=== PATIENT | male | born 1960 | race Caucasian/White ===

== ENCOUNTER 2017-11-30 22:34 | Emergency (ER) | payer MEDICARE, BC ==
[2017-11-30 22:42] VITALS: BP 156/72
[2017-11-30] MEDS ORDERED: Ibuprofen 600 MG Tab PO ONE (23:17)
--- NOTE | 2017-11-30 23:22 | EDM.PDOC ---
ED HPI GENERAL MEDICAL PROBLEM - General Chief Complaint: Upper Extremity Injury/Pain Stated Complaint: ARM PAIN Time Seen by Provider: 11/30/17 22:47 Source of Information: Reports: Patient, Family (2 brothers) History Limitations: Reports: Physical Impairment (Down syndrome) - History of Present Illness INITIAL COMMENTS - FREE TEXT/NARRATIVE: The patient states that he developed left elbow pain tonight. 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 He also likes to color and leans on his left elbow when coloring. The patient's brothers tell me that the patient has a history of gout, initially made when he had symptoms consistent with podagra, although they also say that, to their knowledge, the patient has never had an inflamed joint aspirated. The patient is on allopurinol 300 mg 3 times a week. The patient was seen by me in this ED on 07/28/2016, also with left elbow pain. An x-ray was concerning for an impacted radial head fracture, however, the patient followed up with Dr. Hernandez, who thought that it might be gout in his elbow. Again, no joint aspiration was done, and, according to the brothers, no treatment other than physical therapy was given. The patient's PCP is Dr. Thomason. Left Elbow Pain Score (Numeric/FACES): 6 - Related Data Allergies Allergy/AdvReac Type Severity Reaction Status Date / Time No Known Allergies Allergy Verified 07/28/16 07:39 Home Meds: Home Meds Allopurinol [Zyloprim] 300 mg PO MOWEFR 01/23/14 [History] Levothyroxine [Synthroid] 50 mcg PO DAILY 01/23/14 [History] atorvaSTATin [Lipitor] 20 mg PO DAILY 01/23/14 [History] Pantoprazole [Protonix IV] 40 mg PO DAILY 06/28/16 [History] Sucralfate 1 gm PO TID 11/30/17 [History] Past Medical History HEENT History: Reports: Impaired Vision Cardiovascular History: Reports: High Cholesterol Gastrointestinal History: Reports: GERD Musculoskeletal History: Reports: Gout (presumed) Neurological History: Reports: Other (See Below) (Down syndrome) Endocrine/Metabolic History: Reports: Hypothyroidism, Obesity/BMI 30+ Social & Family History - Tobacco Use Smoking Status *Q: Never Smoker Second Hand Smoke Exposure: Yes - Caffeine Use Caffeine Use: Reports: Soda - Alcohol Use Alcohol Use History: No Days Per Week of Alcohol Use: 0 - Recreational Drug Use Recreational Drug Use: No - Living Situation & Occupation Living situation: Reports: Single, with Family (2 brothers) Occupation: Employed ([employer]) Review of Systems - Review of Systems Review Of Systems: ROS reveals no pertinent complaints other than HPI. ED EXAM, GENERAL - Physical Exam Exam: See Below Exam Limited By: No Limitations General Appearance: Alert, WD/WN, No Apparent Distress Extremities: Other (There is mild erythema to the extensor surface of the left elbow, but no associated swelling, ecchymosis, or abrasion. There is some dry callus to the extensor surface of the left elbow, not present on the right. There is mild tenderness about the elbow generally. Pain is elicited with attempts to extend the elbow. Pain is also elicited with the patient's attempt to extend the elbow against resistance. Flexing the elbow against resistance is less painful. Neurovascular status of the left upper extremity is intact.) Course - Vital Signs Last Recorded V/S: Last Vital Signs Temp 36.2 C 11/30/17 22:39 Pulse 87 11/30/17 22:39 Resp 18 11/30/17 22:39 BP 156/72 H 11/30/17 22:39 Pulse Ox 98 11/30/17 22:39 - Orders/Labs/Meds Meds: Medications Discontinued Medications Generic Name Dose Route Start Last Admin Trade Name Francia PRN Reason Stop Dose Admin Ibuprofen 600 mg 11/30/17 23:17 11/30/17 23:22 Motrin PO 11/30/17 23:18 600 mg ONETIME ONE Administration - Re-Assessments/Exams Free Text/Narrative Re-Assessment/Exam: 11/30/17 23:19 The patient's brothers state that the patient has a history of gout, and he is on allopurinol 300 mg 3 times a week, however, when asked about the specifics of his diagnosis, an inflamed joint has not previously been aspirated, therefore it appears the patient has a suspected diagnosis of gout, not confirmed. I doubt today's presentation is gout. Because the patient has pain with attempt to extend his elbow against resistance, this appears to be tendinitis, not inflammation of the joint itself. I'm recommending ibuprofen 600 mg Q8 hours, with food. If his symptoms persist into next week, I would like him to follow-up with Dr. Hernandez. Departure - Departure Time of Disposition: 23:20 Disposition: Home, Self-Care 01 Condition: Good Clinical Impression: Tendinitis of left elbow - Discharge Information Instructions: Tendinitis Referrals: Raad Acosta MD [Primary Care Provider] - Derek Hernandez MD [Physician] - Forms: ED Department Discharge Additional Instructions: Ric was seen in the emergency room for left elbow pain tonight. On examination, his pain is MOST LIKELY due to tendinitis, not gout. He has been started on the anti-inflammatory medicine ibuprofen. This is available [id number]. Give 3 tablets (600 mg) every 8 hours, with food. He should minimize use and pressure on his left elbow. If he needs to rest on his left elbow, it should be done on a pillow or some other soft material. If his symptoms persist into this coming week, please have him follow-up with Dr. Hernandez. If any other problems, please do not hesitate to return Ric to the ER.
== END 2017-11-30 23:30 | disposition home or self-care (01) ==
LOC: JD.ED 22:34
DX: M77.9 Enthesopathy, unspecified (principal); Q90.9 Down syndrome, unspecified; M10.9 Gout, unspecified; E78.00 Pure hypercholesterolemia, unspecified; E03.9 Hypothyroidism, unspecified; Z79.899 Other long term (current) drug therapy
CPT/HCPCS: 99283; A9270

== ENCOUNTER 2019-01-09 18:38 | Emergency (ER) | payer MEDICARE, BC ==
[2019-01-09] MEDS ORDERED: Sodium Chloride 0.9% 10 ML Syringe FLUSH PRN (19:06)
[2019-01-09] MEDS ORDERED: Sodium Chloride 0.9% 1,000 ML IV SCH (19:15)
--- NOTE | 2019-01-09 19:27 | EDM.PDOC ---
ED HPI GENERAL MEDICAL PROBLEM - General Chief Complaint: Syncope Stated Complaint: [facility] Time Seen by Provider: 01/09/19 18:54 Source of Information: Reports: Patient, EMS, Family History Limitations: Reports: No Limitations - History of Present Illness INITIAL COMMENTS - FREE TEXT/NARRATIVE: The patient presents by [facility] for syncope. The patient has down' s syndrome. He was at home with family and he complained of his head hurting and his chest. He got up to go to the bathroom and he nearly passed out. A family member helped him to the ground. He did not go all the way out. He had no seizure activity. He has no fever, chills, cough, congestion or runny nose. He has some mild chest discomfort. He still has a mild headache. He had a near syncopal episode back in August. He was seen here. His EKG and labs looked good. His CT of his head looked good. He was put on a holter monitor and that showed a couple episodes of SVT that only lasted a few seconds. He had carotid US that looked good. He has no history of MS. Onset: Sudden Duration: Minutes: Location: Reports: Chest Quality: Reports: Ache Severity: Mild Improves with: Reports: None Worsens with: Reports: None Associated Symptoms: Reports: Chest Pain, Headaches. Denies: Cough, Fever/ Chills, Nausea/Vomiting, Shortness of Breath Epigastric Pain Score (Numeric/FACES): 5 - Related Data Allergies Allergy/AdvReac Type Severity Reaction Status Date / Time No Known Allergies Allergy Verified 01/09/19 18:44 Home Meds: Home Meds Allopurinol [Zyloprim] 300 mg PO MOWEFR 01/23/14 [History] Levothyroxine [Synthroid] 50 mcg PO DAILY 01/23/14 [History] atorvaSTATin [Lipitor] 20 mg PO DAILY 01/23/14 [History] Pantoprazole [Protonix IV] 40 mg PO DAILY 06/28/16 [History] Sucralfate 1 gm PO TID 11/30/17 [History] Past Medical History HEENT History: Reports: Impaired Vision Cardiovascular History: Reports: High Cholesterol Gastrointestinal History: Reports: GERD Musculoskeletal History: Reports: Gout Neurological History: Reports: Other (See Below) (Down syndrome) Psychiatric History: Reports: Developmental Delay Endocrine/Metabolic History: Reports: Hypothyroidism, Obesity/BMI 30+ - History Comment History Comment: Patient has Down's syndrome. He is high functioning. Social & Family History - Caffeine Use Caffeine Use: Reports: Soda - Living Situation & Occupation Living situation: Reports: Single, with Family (2 brothers) Occupation: Employed ([employer]) ED ROS GENERAL - Review of Systems Review Of Systems: See Below Constitutional: Reports: No Symptoms HEENT: Reports: No Symptoms Respiratory: Reports: No Symptoms Cardiovascular: Reports: Chest Pain, Syncope Endocrine: Reports: No Symptoms GI/Abdominal: Reports: No Symptoms : Reports: No Symptoms Musculoskeletal: Reports: No Symptoms - Physical Exam Exam: See Below Exam Limited By: No Limitations General Appearance: Alert, No Apparent Distress Ears: Normal External Exam Nose: Normal Inspection Throat/Mouth: Other (Dry mucus membranes) Head Exam: Atraumatic, Normocephalic Neck: Normal Inspection Respiratory/Chest: No Respiratory Distress, Lungs Clear, Normal Breath Sounds Cardiovascular: Regular Rate, Rhythm, No Edema, No Murmur GI/Abdominal: Soft, Non-Tender, No Organomegaly, No Mass Neuro Exam (Abbreviated): Alert, Oriented, No Motor/Sensory Deficits Back Exam: Normal Inspection Extremities: Normal Inspection EKG INTERPRETATION EKG Date: 01/09/19 Time: 19:11 Rhythm: NSR Rate (Beats/Min): 70 [place]: Normal P-Wave: Present QRS: LBBB ST-T: Normal QT: Normal Course - Vital Signs Last Recorded V/S: Last Vital Signs Temp 98.9 F 01/09/19 18:44 Pulse 74 01/09/19 18:44 Resp 16 01/09/19 18:44 BP 122/62 01/09/19 18:44 Pulse Ox - Orders/Labs/Meds Orders: Active Orders 24 hr Category Date Time Status Cardiac Monitoring [RC] . DIRECTED Care 01/09/19 19:06 Active EKG Documentation Completion [RC] STAT Care 01/09/19 19:06 Active Peripheral IV Care [RC] . DIRECTED Care 01/09/19 19:07 Active Chest 1V Frontal [CR] Stat Exams 01/09/19 19:07 Taken Sodium Chloride 0.9% [Normal Saline] 1,000 ml Med 01/09/19 19:15 Active IV ASDIRECTED Sodium Chloride 0.9% [Saline Flush] Med 01/09/19 19:06 Active 10 ml FLUSH ASDIRECTED PRN Peripheral IV Insertion Adult [OM.PC] Stat Oth 01/09/19 19:06 Ordered Medication Orders Sodium Chloride (Normal Saline) 1,000 mls @ 125 mls/hr IV ASDIRECTED SYEDA Last Admin: 01/09/19 19:19 Dose: 125 mls/hr Sodium Chloride (Saline Flush) 10 ml FLUSH ASDIRECTED PRN PRN Reason: Keep Vein Open Last Admin: 01/09/19 19:20 Dose: 10 ml Labs: Laboratory Tests 01/09/19 01/09/19 01/09/19 Range/Units 19:15 19:15 19:15 WBC 6.58 (4.23-9.07) K/mm3 RBC 4.28 L (4.63-6.08) M/mm3 Hgb 14.6 (13.7-17.5) gm/L Hct 42.4 (40.1-51.0) % MCV 99.1 H (79.0-92.2) fl MCH 34.1 H (25.7-32.2) pg MCHC 34.4 (32.2-35.5) g/dl RDW Std Deviation 52.3 H (35.1-43.9) fL Plt Count 162 L (163-337) K/mm3 MPV 9.6 (9.4-12.3) fl Neut % (Auto) 84.3 H (34.0-67.9) % Lymph % (Auto) 9.0 L (21.8-53.1) % Frio % (Auto) 5.9 (5.3-12.2) % Eos % (Auto) 0.3 L (0.8-7.0) Baso % (Auto) 0.3 (0.1-1.2) % Neut # (Auto) 5.55 H (1.78-5.38) K/mm3 Lymph # (Auto) 0.59 L (1.32-3.57) K/mm3 Frio # (Auto) 0.39 (0.30-0.82) K/mm3 Eos # (Auto) 0.02 L (0.04-0.54) K/mm3 Baso # (Auto) 0.02 (0.01-0.08) K/mm3 Manual Slide Review Normal smear Sodium 141 (136-145) mEq/L Potassium 4.0 (3.5-5.1) mEq/L Chloride 105 (98-107) mEq/L Carbon Dioxide 29 (21-32) mEq/L Anion Gap 11.0 (5-15) BUN 13 (7-18) mg/dL Creatinine 1.5 H (0.7-1.3) mg/dL Est Cr Clr Drug Dosing TNP Estimated GFR (MDRD) 48 (>60) mL/min BUN/Creatinine Ratio 8.7 L (14-18) Glucose 147 H (74-106) mg/dL Calcium 9.5 (8.5-10.1) mg/dL Total Bilirubin 0.6 (0.2-1.0) mg/dL AST 31 (15-37) U/L ALT 26 (16-63) U/L Alkaline Phosphatase 114 (46-116) U/L Troponin I < 0.017 (0.00-0.056) ng/mL Total Protein 7.3 (6.4-8.2) g/dl Albumin 3.4 (3.4-5.0) g/dl Globulin 3.9 gm/dL Albumin/Globulin Ratio 0.9 L (1-2) TSH 3rd Generation 4.701 H (0.358-3.74) uIU/mL Meds: Medications Generic Name Dose Route Start Last Admin Trade Name Freq PRN Reason Stop Dose Admin Sodium Chloride 1,000 mls @ 125 mls/hr 01/09/19 19:15 01/09/19 19:19 Normal Saline IV 125 mls/hr ASDIRECTED SYEDA Administration Sodium Chloride 10 ml 01/09/19 19:06 01/09/19 19:20 Saline Flush FLUSH 10 ml ASDIRECTED PRN Administration Keep Vein Open - Re-Assessments/Exams Free Text/Narrative Re-Assessment/Exam: 01/09/19 19:29 I was in talking to the patient and many of his family when the patient passed out again. He had a 3 to 6 second asystole and then bradycardia. He came to in a about 12 seconds after I stimulated him by sternal rub. He said that he passed out again. I had him moved to our trauma bay and put pacer pads on him. I ordered an EKG, CXR, and labs. His EKG shows a LBBB at a rate of 70. That appears to be old from prior EKGs. 01/09/19 20:35 His CBC was negative. His troponin was negative. His creatinine was elevated at 1.5. His glucose was elevated at 147. I talked to the family and I think he needs to see cardiology and have a pacemaker inserted. They wanted me to call [facility] in [place]. When I was on hold he had another bradycardic episode where he went down to 28 to 30. He had chest pain with this and shortness of breath. This lasted about 30 seconds. He came back to a NSR. I talked with Dr Fleming the hospitalist and Dr Acharya the water inspector. They accepted the patient. 01/09/19 20:48 Dr Acharya recommended a dobutamine drip at 3mcg. Departure - Departure Time of Disposition: 20:55 Disposition: DC/Tfer to [facility] 02 Clinical Impression: Asystole Chest pain Qualifiers: Chest pain type: unspecified Qualified Code(s): R07.9 - Chest pain, unspecified Syncope Qualifiers: Syncope type: unspecified Qualified Code(s): R55 - Syncope and collapse Headache Qualifiers: Headache type: unspecified Headache chronicity pattern: acute headache Intractability: not intractable Qualified Code(s): R51 - Headache Hypothyroid Qualifiers: Hypothyroidism type: unspecified Qualified Code(s): E03.9 - Hypothyroidism, unspecified - Discharge Information Referrals: Raad Acosta MD [Primary Care Provider] - Forms: ED Department Discharge - My Orders Last 24 Hours: My Active Orders 01/09/19 19:06 Cardiac Monitoring [RC] . DIRECTED EKG Documentation Completion [RC] STAT Sodium Chloride 0.9% [Saline Flush] 10 ml FLUSH ASDIRECTED PRN Peripheral IV Insertion Adult [OM.PC] Stat 01/09/19 19:07 Peripheral IV Care [RC] . DIRECTED Chest 1V Frontal [CR] Stat 01/09/19 19:15 Sodium Chloride 0.9% [Normal Saline] 1,000 ml IV ASDIRECTED - Assessment/Plan Last 24 Hours: My Active Orders 01/09/19 19:06 Cardiac Monitoring [RC] . DIRECTED EKG Documentation Completion [RC] STAT Sodium Chloride 0.9% [Saline Flush] 10 ml FLUSH ASDIRECTED PRN Peripheral IV Insertion Adult [OM.PC] Stat 01/09/19 19:07 Peripheral IV Care [RC] . DIRECTED Chest 1V Frontal [CR] Stat 01/09/19 19:15 Sodium Chloride 0.9% [Normal Saline] 1,000 ml IV ASDIRECTED
[2019-01-09] MEDS ORDERED: LORazepam 2 MG/ML SDV IVPUSH ONE (21:06)
[2019-01-09] MEDS ORDERED: Atropine 0.4 MG/ML SDV IVPUSH ONE (21:23)
[2019-01-09] MEDS ORDERED: Atropine 0.1 MG/ML 10 ML Syringe ONE (21:29)
[2019-01-09] MEDS ORDERED: Atropine 0.1 MG/ML 10 ML Syringe IVPUSH ONE (21:30)
[2019-01-09 21:43] VITALS: BP 106/59
--- NOTE | 2019-01-10 06:46 | CR ---
Chest: Portable view of the chest was obtained. Comparison: Prior chest x-ray of 08/20/18. Heart size and mediastinum are normal. Lungs are clear. Bony structures are grossly intact. Impression: 1. Nothing acute is seen on portable chest x-ray. No change from previous chest x-ray is seen. Diagnostic code #1
== END 2019-01-09 21:40 ==
LOC: JD.ED 18:38 → SUPCPDRO 18:38 → JD.ED 21:40
DX: I46.9 Cardiac arrest, cause unspecified (principal); R51 Headache; R55 Syncope and collapse; E78.00 Pure hypercholesterolemia, unspecified; K21.9 Gastro-esophageal reflux disease without esophagitis; E03.9 Hypothyroidism, unspecified; Z79.899 Other long term (current) drug therapy
CPT/HCPCS: 36415; 71045; 80053; 84443; 84484; 85025; 96361; 96374; 99285; J0461; J2060; J7040; 93010; 99284

== ENCOUNTER 2019-03-16 13:19 | Emergency (ER) | payer MEDICARE, BC ==
[2019-03-16 13:44] VITALS: BP 140/81
[2019-03-16] MEDS ORDERED: Sodium Chloride 0.9% 10 ML Syringe FLUSH PRN (13:53)
[2019-03-16] MEDS ORDERED: Ondansetron 4 MG/2 ML SDV IVPUSH ONE (13:53)
[2019-03-16] MEDS ORDERED: HYDROmorphone 0.5 MG/0.5 ML Syringe IVPUSH ONE (13:55)
[2019-03-16] MEDS ORDERED: Sodium Chloride 0.9% 1,000 ML IV SCH (14:00)
[2019-03-16] MEDS ORDERED: Sodium Chloride 0.9% 1,000 ML IV ONE (14:43)
--- NOTE | 2019-03-16 14:51 | EDM.PDOC ---
ED HPI GENERAL MEDICAL PROBLEM - General Chief Complaint: Abdominal Pain Stated Complaint: RECTAL BLEEDING Time Seen by Provider: 03/16/19 13:43 Source of Information: Reports: Patient History Limitations: Reports: No Limitations - History of Present Illness INITIAL COMMENTS - FREE TEXT/NARRATIVE: The patient presents with rectal bleeding and abdominal pain. This started this morning. He has had 3 bowel movement with mostly blood in them. He also has generalized abdominal pain. He does not feel nauseated and has not vomited. He has never had anything like this before and he has never had diverticulitis. He recently had a pacemaker put in down in [place]. He is not on blood thinners. He has no other symptoms such as fever, chills, cough, chest pain or shortness of breath. He has no dysuria. Onset: Gradual Duration: Hour(s): Location: Reports: Abdomen Quality: Reports: Ache Severity: Moderate Improves with: Reports: None Worsens with: Reports: None Associated Symptoms: Denies: Chest Pain, Cough, Fever/Chills, Headaches, Nausea/ Vomiting, Shortness of Breath Abdomen Pain Score (Numeric/FACES): 10 - Related Data Allergies Allergy/AdvReac Type Severity Reaction Status Date / Time No Known Allergies Allergy Verified 01/09/19 18:44 Home Meds: Home Meds Allopurinol [Zyloprim] 300 mg PO MOWEFR 01/23/14 [History] Levothyroxine [Synthroid] 50 mcg PO DAILY 01/23/14 [History] atorvaSTATin [Lipitor] 20 mg PO DAILY 01/23/14 [History] Pantoprazole [Protonix IV] 40 mg PO BID 06/28/16 [History] Past Medical History HEENT History: Reports: Impaired Vision Cardiovascular History: Reports: High Cholesterol Gastrointestinal History: Reports: GERD Musculoskeletal History: Reports: Gout Neurological History: Reports: Other (See Below) Psychiatric History: Reports: Developmental Delay Endocrine/Metabolic History: Reports: Hypothyroidism, Obesity/BMI 30+ - History Comment History Comment: Patient has Down's syndrome. He is high functioning. Social & Family History - Tobacco Use Smoking Status *Q: Never Smoker - Caffeine Use Caffeine Use: Reports: Soda - Recreational Drug Use Recreational Drug Use: No - Living Situation & Occupation Living situation: Reports: Single, with Family (2 brothers) Occupation: Employed ([employer]) ED ROS GENERAL - Review of Systems Review Of Systems: See Below Constitutional: Reports: No Symptoms HEENT: Reports: No Symptoms Respiratory: Reports: No Symptoms Cardiovascular: Reports: No Symptoms Endocrine: Reports: No Symptoms GI/Abdominal: Reports: Abdominal Pain, Bloody Stool. Denies: Diarrhea, Nausea, Vomiting : Reports: No Symptoms Musculoskeletal: Reports: No Symptoms ED EXAM, GI/ABD - Physical Exam Exam: See Below Exam Limited By: No Limitations General Appearance: Alert, No Apparent Distress Ears: Normal External Exam Nose: Normal Inspection Head: Atraumatic, Normocephalic Neck: Normal Inspection Respiratory/Chest: No Respiratory Distress, Lungs Clear, Normal Breath Sounds Cardiovascular: Regular Rate, Rhythm, No Edema, No Murmur GI/Abdominal Exam: Soft, No Organomegaly, No Mass, Tender (Moderate tenderness to his whole abdomen) Rectal (Males) Exam: Other (Dried blood at the rectum with no hemorrhoids noted) Extremities: Normal Inspection Course - Vital Signs Last Recorded V/S: Last Vital Signs Temp 97.9 F 03/16/19 13:43 Pulse 65 03/16/19 14:18 Resp 20 03/16/19 13:43 BP 140/81 03/16/19 13:43 Pulse Ox 93 L 03/16/19 14:18 - Orders/Labs/Meds Orders: Active Orders 24 hr Category Date Time Status Peripheral IV Care [RC] . DIRECTED Care 03/16/19 13:55 Active Abdomen Pelvis w Cont [CT] Stat Exams 03/16/19 13:53 Taken Sodium Chloride 0.9% [Normal Saline] 1,000 ml Med 03/16/19 14:00 Active IV ASDIRECTED Sodium Chloride 0.9% [Saline Flush] Med 03/16/19 13:53 Active 10 ml FLUSH ASDIRECTED PRN ED Antiemetic Medication Reflex [OM.PC] Stat Oth 03/16/19 13:53 Ordered Peripheral IV Insertion Adult [OM.PC] Stat Oth 03/16/19 13:53 Ordered Medication Orders Sodium Chloride (Normal Saline) 1,000 mls @ 125 mls/hr IV ASDIRECTED SYEDA Last Admin: 03/16/19 14:12 Dose: 125 mls/hr Sodium Chloride (Saline Flush) 10 ml FLUSH ASDIRECTED PRN PRN Reason: Keep Vein Open Last Admin: 06/02/19 14:13 Dose: 10 ml Labs: Laboratory Tests 03/16/19 03/16/19 Range/Units 14:08 14:08 WBC 4.55 (4.23-9.07) K/mm3 RBC 4.12 L (4.63-6.08) M/mm3 Hgb 14.0 (13.7-17.5) gm/L Hct 41.0 (40.1-51.0) % MCV 99.5 H (79.0-92.2) fl MCH 34.0 H (25.7-32.2) pg MCHC 34.1 (32.2-35.5) g/dl RDW Std Deviation 53.5 H (35.1-43.9) fL Plt Count 178 (163-337) K/mm3 MPV 9.0 L (9.4-12.3) fl Neut % (Auto) 51.5 (34.0-67.9) % Lymph % (Auto) 36.0 (21.8-53.1) % [place] % (Auto) 9.7 (5.3-12.2) % Eos % (Auto) 1.3 (0.8-7.0) Baso % (Auto) 1.3 H (0.1-1.2) % Neut # (Auto) 2.34 (1.78-5.38) K/mm3 Lymph # (Auto) 1.64 (1.32-3.57) K/mm3 [place] # (Auto) 0.44 (0.30-0.82) K/mm3 Eos # (Auto) 0.06 (0.04-0.54) K/mm3 Baso # (Auto) 0.06 (0.01-0.08) K/mm3 Manual Slide Review Abnormal smear Sodium 142 (136-145) mEq/L Potassium 3.8 (3.5-5.1) mEq/L Chloride 104 (98-107) mEq/L Carbon Dioxide 30 (21-32) mEq/L Anion Gap 11.8 (5-15) BUN 9 (7-18) mg/dL Creatinine 1.5 H (0.7-1.3) mg/dL Est Cr Clr Drug Dosing 45.50 mL/min Estimated GFR (MDRD) 48 (>60) mL/min BUN/Creatinine Ratio 6.0 L (14-18) Glucose 98 (74-106) mg/dL Calcium 9.2 (8.5-10.1) mg/dL Total Bilirubin 0.7 (0.2-1.0) mg/dL AST 37 (15-37) U/L ALT 27 (16-63) U/L Alkaline Phosphatase 114 (46-116) U/L Troponin I < 0.017 (0.00-0.056) ng/mL Total Protein 7.2 (6.4-8.2) g/dl Albumin 3.4 (3.4-5.0) g/dl Globulin 3.8 gm/dL Albumin/Globulin Ratio 0.9 L (1-2) Meds: Medications Generic Name Dose Route Start Last Admin Trade Name Freq PRN Reason Stop Dose Admin Sodium Chloride 1,000 mls @ 125 mls/hr 03/16/19 14:00 03/16/19 14:12 Normal Saline IV 125 mls/hr ASDIRECTED SYEDA Administration Sodium Chloride 10 ml 03/16/19 13:53 03/16/19 14:13 Saline Flush FLUSH 10 ml ASDIRECTED PRN Administration Keep Vein Open Discontinued Medications Generic Name Dose Route Start Last Admin Trade Name Freq PRN Reason Stop Dose Admin Diatrizoate Meglum/Diatrizoate Sod 90 ml 03/16/19 15:37 03/16/19 15:54 Gastrografin 37% PO 03/16/19 15:38 90 ml ONETIME ONE Administration Hydromorphone HCl 0.5 mg 03/16/19 13:55 03/16/19 14:12 Dilaudid IVPUSH 03/16/19 13:56 0.5 mg ONETIME ONE Administration Sodium Chloride 1,000 mls @ 1,000 mls/hr 03/16/19 14:43 03/16/19 14:51 Normal Saline IV 03/16/19 15:42 1,000 mls/hr ONETIME ONE Administration Iohexol 100 ml 03/16/19 15:37 03/16/19 15:54 Omnipaque-300 IVPUSH 03/16/19 15:38 100 ml ONETIME ONE Administration Ondansetron HCl 4 mg 03/16/19 13:53 03/16/19 14:13 Zofran IVPUSH 03/16/19 13:54 4 mg ONETIME ONE Administration Sodium Chloride 10 ml 03/16/19 15:37 03/16/19 15:54 Saline Flush FLUSH 03/16/19 15:38 10 ml ONETIME ONE Administration - Re-Assessments/Exams Free Text/Narrative Re-Assessment/Exam: 03/16/19 14:51 I ordered an IV NS at 125mL/hr, zofran 4mg IV, labs, UA, CT of his abdomen and pelvis and dilaudid 0.5mg IV. 03/16/19 17:03 His CBC looks good. His creatinine is elevated at 1.5 and GFR is 48. I ordered a NS bolus. His troponin is negative. The CT shows mild thickening of the rectal wall is present and may be secondary to inflammatory changes. Subpleural cystic changes and atelectatic changes noted within both lung bases. Bladder is moderately distended. Mild diverticulosis is present in the distal colon. He is feeling better. He is going to need a colonoscopy within a week or 2. I feel it is safe to have him go home. Departure - Departure Time of Disposition: 17:10 Disposition: Home, Self-Care 01 Condition: Good Clinical Impression: Proctitis - Discharge Information *PRESCRIPTION DRUG MONITORING PROGRAM REVIEWED*: No *COPY OF PRESCRIPTION DRUG MONITORING REPORT IN PATIENT PB: No Referrals: Raad Acosta MD [Primary Care Provider] - 2 Days Forms: ED Department Discharge Additional Instructions: Drink plenty of fluids. Take tylenol or motrin for pain. Follow up with Dr Thomason within a week. Try calling his office tomorrow. - My Orders Last 24 Hours: My Active Orders 03/16/19 13:53 Abdomen Pelvis w Cont [CT] Stat Sodium Chloride 0.9% [Saline Flush] 10 ml FLUSH ASDIRECTED PRN ED Antiemetic Medication Reflex [OM.PC] Stat Peripheral IV Insertion Adult [OM.PC] Stat 03/16/19 13:55 Peripheral IV Care [RC] . DIRECTED 03/16/19 14:00 Sodium Chloride 0.9% [Normal Saline] 1,000 ml IV ASDIRECTED - Assessment/Plan Last 24 Hours: My Active Orders 03/16/19 13:53 Abdomen Pelvis w Cont [CT] Stat Sodium Chloride 0.9% [Saline Flush] 10 ml FLUSH ASDIRECTED PRN ED Antiemetic Medication Reflex [OM.PC] Stat Peripheral IV Insertion Adult [OM.PC] Stat 03/16/19 13:55 Peripheral IV Care [RC] . DIRECTED 03/16/19 14:00 Sodium Chloride 0.9% [Normal Saline] 1,000 ml IV ASDIRECTED
[2019-03-16] MEDS ORDERED: Iohexol 647 MG/ML 100 ML Bottle IVPUSH ONE (15:37)
[2019-03-16] MEDS ORDERED: Diatrizoate Meglumine/Diatrizoate Sodium 37% 120 ML Bottle PO ONE (15:37)
[2019-03-16] MEDS ORDERED: Sodium Chloride 0.9% 10 ML Syringe FLUSH ONE (15:37)
--- NOTE | 2019-03-17 10:16 | CT ---
CT abdomen and pelvis Technique: Multiple axial sections were obtained from above the dome of the diaphragm inferiorly through the pubic symphysis. Intravenous and oral contrast was utilized. Comparison: No prior abdominal imaging. Findings: Visualized lung bases show multiple subpleural blebs within the right base and lesser change within the left base. Liver contains no focal abnormality. Gallbladder shows no calcified gallstones. Small amount of contrast reflux into the distal esophagus is seen. Spleen appears within normal limits. Adrenal glands show no nodule. Kidneys show symmetric contrast enhancement without hydronephrosis or mass. Pancreas appears within normal limits. Aorta shows no aneurysm. No retroperitoneal adenopathy or mesenteric abnormalities are seen. No pelvic mass or adenopathy is seen. No free fluid or inflammatory change is seen. Appendix not definitely visualized. Delayed images show contrast within the distal ureters. Bladder is somewhat distended. Questionable thickening within portions of the sigmoid and rectum. Difficult to exclude colitis. Minimal sigmoid diverticulosis is seen without diverticulitis. Bone window settings were reviewed which show diffuse degenerative change throughout the spine. Spondylolisthesis is seen due to degenerative apophyseal changes at L5-S1. This spondylolisthesis at L5-S1 measures approximately 3.5 mm. Impression: 1. Multiple findings believed to be incidental as described above. 2. Questionable colitis within the rectum and portions of the sigmoid colon. 3. Nothing acute is otherwise appreciated on CT study of the abdomen and pelvis. Note: Given history of rectal bleeding, endoscopy is suggested to further evaluate. Diagnostic code #3 I agree with preliminary report from [facility], finalized on 03/16/19, 5:27 PM Central Time
== END 2019-03-16 17:27 | disposition home or self-care (01) ==
LOC: JD.ED 13:19
DX: K62.89 Other specified diseases of anus and rectum (principal); K21.9 Gastro-esophageal reflux disease without esophagitis; E03.9 Hypothyroidism, unspecified; Z79.899 Other long term (current) drug therapy
CPT/HCPCS: 36415; 74177; 80053; 84484; 85025; 96361; 96374; 96375; 99284; J1170; J2405; J7040; Q9963; Q9967

== ENCOUNTER 2019-04-11 06:20 | Day surgery (SDC) | payer MEDICARE, BC ==
[~2019-04-11 06:20] MED LIST: Lactated Ringers 1,000 ML IV SCH; Lidocaine 1%/Sod Bicarbonate in NS 8.4% 1 ML Syringe IDERM PRN; Sodium Chloride 0.9% 10 ML Syringe FLUSH PRN
[2019-04-11] MEDS ORDERED: Propofol 200 MG/20 ML SDV ONE (06:56)
[2019-04-11] MEDS ORDERED: Lidocaine 1% 4 ML ONE (06:56)
[2019-04-11] MEDS ORDERED: fentaNYL 100 MCG/2 ML SDV ONE (06:56)
--- NOTE | 2019-04-11 07:08 | PCM.PREANE ---
Preanesthetic Assessment - Procedure Proposed Procedure: colonoscopy - Anesthesia/Transfusion/Family Hx Anesthesia History: Prior Anesthesia Without Reaction Family History of Anesthesia Reaction: No Transfusion History: No Prior Transfusion(s) - Review of Systems General: No Symptoms Pulmonary: No Symptoms Cardiovascular: No Symptoms, Other (sternal discomfort-) Gastrointestinal: Abdominal Pain (upper and mid) Neurological: No Symptoms, Other (downs-) Other: Reports: Thyroid Problems - Physical Assessment NPO Status Date: 04/10/19 NPO Status Time: 22:00 Pulse: 86 O2 Sat by Pulse Oximetry: 98 Respiratory Rate: 20 Blood Pressure: 129/82 Temperature: 98.9 F Height: 5 ft 1 in Weight: 69 kg ASA Class: 2 Mental Status: Alert & Oriented x3 Airway Class: Mallampati = 2 Dentition: Reports: Broken Tooth/Teeth (front left tooth very loose), Missing Tooth/Teeth Thyro-Mental Finger Breadths: 3 Mouth Opening Finger Breadths: 3 ROM/Head Extension: Full Lungs: Clear to Auscultation, Normal Respiratory Effort Cardiovascular: Regular Rate, Regular Rhythm - Allergies Allergies/Adverse Reactions: Allergies Allergy/AdvReac Type Severity Reaction Status Date / Time No Known Allergies Allergy Verified 04/10/19 10:50 - Blood Blood Available: No - Acknowledgements Anesthesia Type Planned: MAC Pt an Appropriate Candidate for the Planned Anesthesia: Yes Alternatives and Risks of Anesthesia Discussed w Pt/Guardian: Yes Pt/Guardian Understands and Agrees with Anesthesia Plan: Yes PreAnesthesia Questionnaire HEENT History: Reports: Impaired Vision Cardiovascular History: Reports: High Cholesterol, Pacemaker (2 mnonths ago) Respiratory History: Reports: None Gastrointestinal History: Reports: Gastritis, GERD Genitourinary History: Reports: None 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[employer] 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 History: Reports: None Musculoskeletal History: Reports: Arthritis, Gout Neurological History: Reports: Other (See Below) Psychiatric History: Reports: Developmental Delay, Other (See Below) (downs) Endocrine/Metabolic History: Reports: Hypothyroidism Hematologic History: Reports: Other (See Below) Other Hematologic History: leukocytopenia, monoclonal gammopathy Immunologic History: Reports: None Oncologic (Cancer) History: Reports: None Dermatologic History: Reports: None - Past Surgical History Head Surgeries/Procedures: Reports: None HEENT Surgical History: Reports: Other (See Below) Other HEENT Surgeries/Procedures: multiple ear surgeries Cardiovascular Surgical History: Reports: Pacer Respiratory Surgical History: Reports: None GI Surgical History: Reports: Colonoscopy, EGD Female Surgical History: Reports: None Male Surgical History: Reports: None Endocrine Surgical History: Reports: None Oncologic Surgical History: Reports: None - History Comment History Comment: Patient has Down's syndrome. He is high functioning. - SUBSTANCE USE Smoking Status *Q: Never Smoker Tobacco Use Within Last Twelve Months: No Second Hand Smoke Exposure: Yes Days Per Week of Alcohol Use: 7 Number of Drinks Per Day: 1 (1 can of beer) Total Drinks Per Week: 7 Recreational Drug Use History: No - HOME MEDS Home Medications: Home Meds Allopurinol [Zyloprim] 300 mg PO MOWEFR 01/23/14 [History] Levothyroxine [Synthroid] 50 mcg PO DAILY 01/23/14 [History] atorvaSTATin [Lipitor] 20 mg PO DAILY 01/23/14 [History] Pantoprazole [Protonix IV] 40 mg PO BID 06/28/16 [History] Acetaminophen [Tylenol] 650 mg PO Q6H PRN 04/10/19 [History] Calcium Carbonate [Tums] 300 - 600 mg PO QID PRN 04/10/19 [History] Cholecalciferol (Vitamin D3) [Vitamin D3] 1,000 unit PO DAILY 04/10/19 [History] - CURRENT (IN HOUSE) MEDS Current Meds: Current Medications Lactated Ringer's (Ringers, Lactated) 1,000 mls @ 125 mls/hr IV ASDIRECTED SYEDA Stop: 04/11/19 23:00 Lidocaine/Sodium Bicarbonate (Buffered Lidocaine 1% In Ns 8.4%) 0.25 ml IDERM ONETIME PRN PRN Reason: Prior to IV Start Stop: 04/11/19 18:00 Sodium Chloride (Saline Flush) 10 ml FLUSH ASDIRECTED PRN PRN Reason: Keep Vein Open Stop: 04/11/19 18:00 Discontinued Medications Fentanyl (Sublimaze) Confirm Administered Dose 100 mcg .ROUTE .STK-MED ONE Stop: 04/11/19 06:57 Lidocaine HCl (Xylocaine-Mpf 1%) Confirm Administered Dose 4 mls @ as directed .ROUTE .STK-MED ONE Stop: 04/11/19 06:57 Propofol (Diprivan 20 Ml) Confirm Administered Dose 400 mg .ROUTE .STK-MED ONE Stop: 04/11/19 06:57
--- NOTE | 2019-04-11 08:23 | PCM48HPAN ---
Post Anesthesia Note - EVALUATION WITHIN 48HRS OF ANESTHETIC Vital Signs in Normal Range: Yes Patient Participated in Evaluation: Yes Respiratory Function Stable: Yes Airway Patent: Yes Cardiovascular Function Stable: Yes Hydration Status Stable: Yes Pain Control Satisfactory: Yes Nausea and Vomiting Control Satisfactory: Yes Mental Status Recovered: Yes Pulse Rate: 65 SaO2: 100 Resp Rate: 14 Temperature: 97.8 F Blood Pressure: 117/78
--- NOTE | 2019-04-11 08:31 | PCM.OPNOTE ---
- General Post-Op/Procedure Note Date of Surgery/Procedure: 04/11/19 Operative Procedure(s): Colonoscopy with cold forceps biopsy Findings: Mild Diverticulosis, Grade I internal hemorrhoids, 4 mm polyp at splenic flexure Pre Op Diagnosis: Hematochezia Post-Op Diagnosis: Mild diverticulosis, Grade I internal hemorrhoids, 4 mm polyp splenic flexure Anesthesia Technique: MAC Primary Surgeon: Raad Acosta Anesthesia Provider: Medina Kaminski EBL in mLs: 5 Complications: None Condition: Good Free Text/Narrative:: After the patient gave verbal and written consent he was placed on blood pressure and pulse ox monitoring. He was given IV sedation which he tolerated well. The olympus colonoscope was inserted per rectum and advanced to the cecum without difficulty. The ileocecal valve and appendiceal orfice were imaged documenting cecal intubation. The prep was good, the views were good. The scope was slowly withdrawn and the mucosal surfaces were carefully examined. Mild diverticulosis was noted throughout the colon. A 4 mm splenic flexure polyp was noted and removed with cold forceps biopsy. There was good hemostasis. THe scope was then retroflexed in the rectum and Grade I internal hemorrhoids were noted. THe scope was then removed. THere were no complications. Patient left the OR in good condition.
[2019-04-11 10:16] VITALS: BP 115/72
== END 2019-04-11 08:57 | disposition home or self-care (01) ==
LOC: JD.SDS 06:20
PROVIDERS: ATTEND Family Medicine
DX: D12.3 Benign neoplasm of transverse colon (principal); K57.31 Diverticulosis of large intestine without perforation or abscess with bleeding; K64.0 First degree hemorrhoids; Q90.9 Down syndrome, unspecified; K80.20 Calculus of gallbladder without cholecystitis without obstruction; K21.9 Gastro-esophageal reflux disease without esophagitis; E03.9 Hypothyroidism, unspecified; D72.819 Decreased white blood cell count, unspecified; M10.9 Gout, unspecified; E78.2 Mixed hyperlipidemia; E66.9 Obesity, unspecified; Z68.26 Body mass index [BMI] 26.0-26.9, adult; Z79.899 Other long term (current) drug therapy; Z95.0 Presence of cardiac pacemaker
CPT/HCPCS: 45380; J2001; J2704; J3010; J7120; 00811

== ENCOUNTER 2020-05-01 05:52 | Inpatient (IN) | payer MEDICARE, BC ==
[2020-05-01] MEDS ORDERED: Lactated Ringers 1,000 ML IV ONE (06:36)
--- NOTE | 2020-05-01 06:47 | EDM.PDOC ---
ED HPI GENERAL MEDICAL PROBLEM - General Chief Complaint: Abdominal Pain Stated Complaint: [facility] Time Seen by Provider: 05/01/20 06:20 Source of Information: Reports: Patient, Family (Brother) History Limitations: Reports: No Limitations - History of Present Illness INITIAL COMMENTS - FREE TEXT/NARRATIVE: Mr. Greco is a very pleasant 59-year-old gentleman with a past medical history significant for Down syndrome, who is now brought to the ED by EMS after becoming weak and falling. His brother, who is here in the ED, tells me that the patient has not been eating, but it is not out of fear of COVID-19, as suggested in the triage note, rather, the patient is afraid that if he eats, he will need to defecate, therefore he has not been eating anything other than multivitamins for the past 2 weeks, and has not been eating well for more than a month. His brother estimates that he has lost 12 to 13 pounds over the past month. He is also been complaining of epigastric abdominal pain for the past 2 weeks. The patient's brother tells me that, contrary to the triage note, he has not been following a number of times, rather, he felt weak when he stood up t shahram, and fell backwards, and that this was the only time that he has done so. He is uninjured. Here in the ED, the patient is found to be hemodynamically stable, afebrile, saturating 98% on room air. Other than his epigastric abdominal pain and his fall today, the patient denies recent fever, chills, sore throat, ear pain, nasal or sinus congestion, cough, dyspnea, chest pain, palpitations, nausea, vomiting, constipation, diarrhea, abdominal pain, urinary symptoms, recent weight gain or weight loss, recent bloody bowel movements or black bowel movements, recent joint aches, headaches, or rashes. The patient's PCP is Dr. Raad Acosta. He last saw Dr. Thomason about a month ago. 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: IV/IO Epigastric Pain Score (Numeric/FACES): 7 - Related Data Allergies Allergy/AdvReac Type Severity Reaction Status Date / Time No Known Allergies Allergy Verified 05/01/20 06:09 Home Meds: Home Meds Levothyroxine [Synthroid] 50 mcg PO DAILY 01/23/14 [History] allopurinoL [Zyloprim] 300 mg PO MOWEFR 01/23/14 [History] atorvaSTATin [Lipitor] 20 mg PO DAILY 01/23/14 [History] Pantoprazole [Protonix IV] 40 mg PO BID 06/28/16 [History] Acetaminophen [Tylenol] 650 mg PO Q6H PRN 04/10/19 [History] Calcium Carbonate [Tums] 300 - 600 mg PO QID PRN 04/10/19 [History] Cholecalciferol (Vitamin D3) [Vitamin D3] 1,000 unit PO DAILY 04/10/19 [History] Past Medical History HEENT History: Reports: Impaired Vision Cardiovascular History: Reports: High Cholesterol Gastrointestinal History: Reports: Gastritis, GERD Musculoskeletal History: Reports: Gout (suspected) Neurological History: Reports: Other (See Below) (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 He is high functioning. Social & Family History - Tobacco Use Smoking Status *Q: Never Smoker - Caffeine Use Caffeine Use: Reports: Soda - Alcohol Use Alcohol Use History: No - Recreational Drug Use Recreational Drug Use: No - Living Situation & Occupation Living situation: Reports: Single, with Family (2 brothers) Occupation: Unemployed ED ROS GENERAL - Review of Systems Review Of Systems: Comprehensive ROS is negative, except as noted in HPI. ED EXAM, GI/ABD - Physical Exam Exam: See Below Exam Limited By: No Limitations General Appearance: Alert, WD/WN, No Apparent Distress Eyes: Bilateral: Normal Appearance, EOMI Ears: Normal External Exam, Hearing Grossly Normal Nose: Normal Inspection Throat/Mouth: Normal Inspection, Normal Lips, Normal Voice, No Airway Compromise Head: Atraumatic, Normocephalic Neck: Normal Inspection, Full Range of Motion Respiratory/Chest: No Respiratory Distress, Lungs Clear, Normal Breath Sounds, No Accessory Muscle Use Cardiovascular: Normal Peripheral Pulses, Regular Rate, Rhythm, No Edema, No Gallop, No JVD, No Murmur, No Rub GI/Abdominal Exam: Normal Bowel Sounds, Soft, Non-Tender (including the epigastrium), No Organomegaly, No Distention, No Abnormal Bruit, No Mass (Male) Exam: Deferred Rectal (Males) Exam: Deferred Back Exam: Normal Inspection, Full Range of Motion, NT Extremities: Normal Inspection, Normal Range of Motion, No Pedal Edema, Normal Capillary Refill Neurological: Alert, Oriented, No Motor/Sensory Deficits Psychiatric: Normal Affect Skin Exam: Warm, Dry, Intact, Normal Color, No Rash EKG INTERPRETATION EKG Date: 05/01/20 Time: 06:40 Rhythm: Other (Atrial paced) Rate (Beats/Min): 60 QRS: LBBB Comparison: Change From Previous EKG (Atrial pace is new since 01/09/2019.) Course - Vital Signs Last Recorded V/S: Last Vital Signs Temp 36.9 C 05/01/20 06:04 Pulse 61 05/01/20 06:04 Resp 20 05/01/20 06:04 BP 135/77 05/01/20 06:04 Pulse Ox 98 05/01/20 06:04 Orthostatic Blood Pressure [ 112/67 Standing] Orthostatic Blood Pressure [ 111/63 Supine] - Orders/Labs/Meds Orders: Active Orders 24 hr Category Date Time Status EKG Documentation Completion [RC] STAT Care 05/01/20 06:35 Active Orthostatic Vital Signs [RC] STAT Care 05/01/20 06:34 Active Magnesium Sulfate/Water [Magnesium Sulfate in Water Med 05/01/20 08:14 Active Premix] 2 gm Premix Bag 1 bag IV ONETIME Medication Orders Magnesium Sulfate 2 gm/ Premix 50 mls @ 25 mls/hr IV ONETIME ONE Stop: 05/01/20 10:13 Last Admin: 05/01/20 08:24 Dose: 25 mls/hr Documented by: QUYEN Labs: Laboratory Tests 05/01/20 05/01/20 Range/Units 06:48 06:48 WBC 4.24 (4.23-9.07) K/mm3 RBC 4.37 L (4.63-6.08) M/mm3 Hgb 14.5 (13.7-17.5) gm/dl Hct 40.0 L (40.1-51.0) % MCV 91.5 D (79.0-92.2) fl MCH 33.2 H (25.7-32.2) pg MCHC 36.3 H (32.2-35.5) g/dl RDW Std Deviation 46.0 H (35.1-43.9) fL Plt Count 157 L (163-337) K/mm3 MPV 8.9 L (9.4-12.3) fl Neutrophils % (Manual) 69 H (40-60) % Band Neutrophils % 0 (0-10) % Lymphocytes % (Manual) 20 (20-40) % Atypical Lymphs % 0 % Monocytes % (Manual) 10 (2-10) % Eosinophils % (Manual) 0 L (0.8-7.0) % Basophils % (Manual) 1 (0.2-1.2) Platelet Estimate Adequate Hypochromasia 1+ slight Anisocytosis 1+ slight RBC Morph Comment Abnormal Sodium 129 L D (136-145) mEq/L Potassium 3.4 L (3.5-5.1) mEq/L Chloride 92 L D (98-107) mEq/L Carbon Dioxide 31 (21-32) mEq/L Anion Gap 9.4 (5-15) BUN 4 L (7-18) mg/dL Creatinine 1.1 (0.7-1.3) mg/dL Est Cr Clr Drug Dosing 68.44 mL/min Estimated GFR (MDRD) > 60 (>60) mL/min BUN/Creatinine Ratio 3.6 L (14-18) Glucose 112 H (74-106) mg/dL Calcium 8.8 (8.5-10.1) mg/dL Magnesium 1.5 L (1.8-2.4) mg/dl Total Bilirubin 1.4 H (0.2-1.0) mg/dL AST 35 (15-37) U/L ALT 33 (16-63) U/L Alkaline Phosphatase 130 H (46-116) U/L Troponin I < 0.017 (0.00-0.056) ng/mL Total Protein 6.8 (6.4-8.2) g/dl Albumin 3.1 L (3.4-5.0) g/dl Globulin 3.7 gm/dL Albumin/Globulin Ratio 0.8 L (1-2) Meds: Medications Generic Name Dose Route Start Last Admin Trade Name Freq PRN Reason Stop Dose Admin Magnesium Sulfate 2 gm/ Premix 50 mls @ 25 mls/hr 05/01/20 08:14 05/01/20 08:24 IV 05/01/20 10:13 25 mls/hr ONETIME ONE Administration Discontinued Medications Generic Name Dose Route Start Last Admin Trade Name Francia PRLucero Reason Stop Dose Admin Lactated Ringer's 1,000 mls @ 999 mls/hr 05/01/20 06:36 05/01/20 06:41 Ringers, Lactated IV 05/01/20 07:36 999 mls/hr .BOLUS ONE Administration - Re-Assessments/Exams Free Text/Narrative Re-Assessment/Exam: 05/01/20 06:41 As above, the patient has been concerned that if he eats he will defecate, and therefore has not been eating for about 2 weeks, although it may have been actually closer to a month or that he has not been eating greatly. His brother estimates that he is lost about 12 to 13 pounds over the past month. The patient has been complaining of epigastric pain for at least 2 weeks. He then b ecame weak and fell today, but appears to be uninjured. He is hemodynamically stable, but we will check orthostatics. His examination is unremarkable, including that of his abdomen, which does not appear to be tender, therefore I do not see an indication for an emergency CT scan of his abdomen, however, I have ordered a work-up that includes blood work and an ECG. In the meantime, the patient will be given IV fluid. 05/01/20 08:15 The patient's CBC is remarkable for a Hct slightly elevated at 40.0, with a Hgb within normal limits at 14.5. His platelets are depressed at 157,000, with the remainder of his CBC being unremarkable. His CMP is remarkable for a sodium depressed at 129, with potassium slightly depressed at 3.4. His blood glucose is slightly elevated at 112. His TBil is slightly elevated at 1.4, and his alkaline phosphatase is slightly elevated at 130, with the remainder of his CMP being unremarkable. His magnesium level is depressed at 1.5. His troponin is undetectably low. Based on the above, I have ordered a 2 g Mg-rider. 05/01/20 08:26 Notified by Melisa GARNER that the patient feels much better after he urinated about 1 L. The patient is not orthostatic. Case discussed with Dr. Alexandra at 08:20. He accepted the patient for admission to the MedSurg unit. I will order a swab to test for the SARS-CoV-2 virus. Departure - Departure Time of Disposition: 08:26 Disposition: Refer to Observation Condition: Good Clinical Impression: Weight loss, Epigastric abdominal pain, Anorexia, Hypomagnesemia, Urinary retention, Hyponatremia - Discharge Information *PRESCRIPTION DRUG MONITORING PROGRAM REVIEWED*: Not Applicable *COPY OF PRESCRIPTION DRUG MONITORING REPORT IN PATIENT PB: Not Applicable Sepsis Event Note (ED) - Evaluation Sepsis Screening Result: No Definite Risk - Focused Exam Vital Signs: Vital Signs Temp Pulse Resp BP Pulse Ox 05/01/20 06:04 36.9 C 61 20 135/77 98 - My Orders Last 24 Hours: My Active Orders 05/01/20 06:34 Orthostatic Vital Signs [RC] STAT 05/01/20 06:35 EKG Documentation Completion [RC] STAT 05/01/20 08:14 Magnesium Sulfate/Water [Magnesium Sulfate in Water Premix] 2 gm Premix Bag 1 bag IV ONETIME - Assessment/Plan Last 24 Hours: My Active Orders 05/01/20 06:34 Orthostatic Vital Signs [RC] STAT 05/01/20 06:35 EKG Documentation Completion [RC] STAT 05/01/20 08:14 Magnesium Sulfate/Water [Magnesium Sulfate in Water Premix] 2 gm Premix Bag 1 bag IV ONETIME
[2020-05-01] MEDS ORDERED: Magnesium Sulfate/Water 2 GM in Premix Bag 1 BAG IV ONE (08:14)
--- NOTE | 2020-05-01 10:10 | PCM.HP.2 ---
H&P History of Present Illness - General Date of Service: 05/01/20 Admit Problem/Dx: Admission Diagnosis/Problem Admission Diagnosis/Problem Hypomagnesemia Source of Information: Patient, Family, Old Records, Provider, RN Notes Reviewed History Limitations: Reports: Other (Baseline Intellectual Disability) - History of Present Illness Initial Comments - Free Text/Narative: This is a 59 yo white male with past medical hx/o HTN, HLD, Hypothyroidism, GERD, Gastritis, HCC/Sick Sinus Syndrome S/p Pacemaker Placement, MGUS, Leukocytopenia, Down Syndrome, Intellectual Disability, OA, Gout, Obesity, and Hx/o Gallstones w/o Obstruction who brought in by his brother generalized weakness and evaluation of a recent fall at home without obvious trauma. According to family, he has not been eating for the past 2 weeks or so because he does not want to have bowel movement ("shit"). He has had about 12-13 lbs weight loss for the past couple months. He denies having trouble swallowing or chewing. On presentation to ED, he reported having epigastric pain but no associated nausea or vomiting. However no significant findings on physical examination performed by ED provider. His initial work up in ED shows a CBC remarkable for platelet of 157. His chemistry is significant for sodium of 129, K of 3.4, Cl of 92, BUN of 4, Cr of 1.1, BS of 112, Mag of 1.5, Total Bili of 1.4, Alk phos of 130 and Albumin of 3.1. His UA and COVID-19 screening are both negative. Epigastric Pain Score (Numeric/FACES): 7 - Related Data Allergies/Adverse Reactions: Allergies Allergy/AdvReac Type Severity Reaction Status Date / Time No Known Allergies Allergy Verified 05/01/20 10:16 Home Medications: Home Meds Levothyroxine [Synthroid] 50 mcg PO DAILY 01/23/14 [History] allopurinoL [Zyloprim] 300 mg PO MOWEFR 01/23/14 [History] atorvaSTATin [Lipitor] 20 mg PO DAILY 01/23/14 [History] Cholecalciferol (Vitamin D3) [Vitamin D3] 1,000 unit PO DAILY 04/10/19 [History] Cyanocobalamin (Vitamin B-12) [B-12] 1,000 mcg PO DAILY 05/01/20 [History] Juice Plus. 1 tab PO DAILY 05/01/20 [History] Multivitamin [Multivitamins] 1 tab PO DAILY 05/01/20 [History] Sucralfate 1 gm PO TIDMEALS 05/01/20 [History] Past Medical History HEENT History: Reports: Impaired Vision Other HEENT History: wears glasses Cardiovascular History: Reports: High Cholesterol Respiratory History: Reports: None Gastrointestinal History: Reports: Gastritis, GERD Genitourinary History: Reports: None [employer] History: Reports: None Musculoskeletal History: Reports: Gout, Other (See Below) Other Musculoskeletal History: broke ankle before Neurological History: Reports: Other (See Below) Psychiatric History: Reports: Other (See Below) Other Psychiatric History: down syndrome Endocrine/Metabolic History: Reports: Hypothyroidism Hematologic History: Reports: Other (See Below) Other Hematologic History: leukocytopenia, monoclonal gammopathy. had a blood clot in his leg Immunologic History: Reports: None Oncologic (Cancer) History: Reports: None Dermatologic History: Reports: None Other Dermatologic History: brown discoloration to bilateral lower legs - Infectious Disease History Infectious Disease History: Reports: Chicken Pox, Measles, Mumps - Past Surgical History Cardiovascular Surgical History: Reports: Pacer Respiratory Surgical History: Reports: None GI Surgical History: Reports: Colonoscopy, EGD Male Surgical History: Reports: None Oncologic Surgical History: Reports: None - History Comment History Comment: Patient has Down's syndrome. He is high functioning. Social & Family History - Family History Family Medical History: Noncontributory - Tobacco Use Smoking Status *Q: Never Smoker - Caffeine Use Caffeine Use: Reports: Soda - Recreational Drug Use Recreational Drug Use: No - Living Situation & Occupation Living situation: Reports: Single, with Family (2 brothers) Occupation: Unemployed H&P Review of Systems - Review of Systems: Review Of Systems: See Below General: Reports: Weakness, Decreased Appetite. Denies: Fever, Chills, Malaise, Fatigue HEENT: Reports: No Symptoms Pulmonary: Denies: Shortness of Breath, Pleuritic Chest Pain Cardiovascular: Denies: Chest Pain, Dyspnea on Exertion, Lightheadedness Gastrointestinal: Reports: Abdominal Pain (epigastric). Denies: Nausea, Vomiting Genitourinary: Reports: No Symptoms Musculoskeletal: Reports: No Symptoms Skin: Denies: Cyanosis Psychiatric: Denies: Anxiety, Agitation, Cravings Neurological: Reports: Other (baseline intellecual disability). Denies: Di zziness, Headache, Numbness, Seizure, Tingling, Tremors, Difficulty Walking, Gait Disturbance Hematologic/Lymphatic: Reports: No Symptoms Exam - Exam Exam: See Below - Vital Signs Vital Signs: Last Vital Signs Temp 36.9 C 05/01/20 06:04 Pulse 69 05/01/20 09:53 Resp 16 05/01/20 09:53 BP 112/61 05/01/20 09:53 Pulse Ox 96 05/01/20 09:53 Orthostatic Blood Pressure [ 112/67 Standing] Orthostatic Blood Pressure [ 111/63 Supine] Weight: 65.68 kg - Exam General: Alert, Cooperative, Mild Distress, Moderate Distress HEENT: Conjunctiva Clear, EACs Clear, EOMI, Hearing Intact, Mucosa Moist & [place], Nares Patent, Posterior Pharynx Clear Neck: Supple, Trachea Midline Lungs: Clear to Auscultation, Normal Respiratory Effort Cardiovascular: Regular Rate, Regular Rhythm, Other (pacemaker on upper thorax) GI/Abdominal Exam: Normal Bowel Sounds, Soft, Non-Tender, No Organomegaly, No Distention, No Abnormal Bruit, No Mass (Male) Exam: Deferred Rectal (Males) Exam: Deferred Back Exam: Normal Inspection, Decreased Range of Motion Extremities: Normal Inspection, Normal Range of Motion, Non-Tender, No Pedal Edema, Normal Capillary Refill, Other (hyperpigmentation of both lower extremities) Peripheral Pulses: 2+: Dorsalis Pedis (L), Dorsalis Pedis (R) Skin: Warm, Dry, Intact Neuro Extensive - Mental Status: Normal Cognition, Memory Intact Neuro Extensive - Motor, Sensory, Reflexes: Other (neurological exam is limited but grossly intact) DTR: 2+: Achilles (L), Achilles (R) Psychiatric: Alert, Normal Affect, Normal Mood - Patient Data Lab Results Last 24 hrs: Laboratory Results - last 24 hr 05/01/20 05/01/20 05/01/20 Range/Units 06:48 06:48 08:50 WBC 4.24 (4.23-9.07) K/mm3 RBC 4.37 L (4.63-6.08) M/mm3 Hgb 14.5 (13.7-17.5) gm/dl Hct 40.0 L (40.1-51.0) % MCV 91.5 D (79.0-92.2) fl MCH 33.2 H (25.7-32.2) pg MCHC 36.3 H (32.2-35.5) g/dl RDW Std Deviation 46.0 H (35.1-43.9) fL Plt Count 157 L (163-337) K/mm3 MPV 8.9 L (9.4-12.3) fl Neutrophils % (Manual) 69 H (40-60) % Band Neutrophils % 0 (0-10) % Lymphocytes % (Manual) 20 (20-40) % Atypical Lymphs % 0 % Monocytes % (Manual) 10 (2-10) % Eosinophils % (Manual) 0 L (0.8-7.0) % Basophils % (Manual) 1 (0.2-1.2) Platelet Estimate Adequate Hypochromasia 1+ slight Anisocytosis 1+ slight RBC Morph Comment Abnormal Sodium 129 L D (136-145) mEq/L Potassium 3.4 L (3.5-5.1) mEq/L Chloride 92 L D (98-107) mEq/L Carbon Dioxide 31 (21-32) mEq/L Anion Gap 9.4 (5-15) BUN 4 L (7-18) mg/dL Creatinine 1.1 (0.7-1.3) mg/dL Est Cr Clr Drug Dosing 68.44 mL/min Estimated GFR (MDRD) > 60 (>60) mL/min BUN/Creatinine Ratio 3.6 L (14-18) Glucose 112 H (74-106) mg/dL Calcium 8.8 (8.5-10.1) mg/dL Magnesium 1.5 L (1.8-2.4) mg/dl Total Bilirubin 1.4 H (0.2-1.0) mg/dL AST 35 (15-37) U/L ALT 33 (16-63) U/L Alkaline Phosphatase 130 H (46-116) U/L Troponin I < 0.017 (0.00-0.056) ng/mL Total Protein 6.8 (6.4-8.2) g/dl Albumin 3.1 L (3.4-5.0) g/dl Globulin 3.7 gm/dL Albumin/Globulin Ratio 0.8 L (1-2) COVID-19 (NOBLE) Negative (NEGATIVE) Result Diagrams: 05/02/20 04:24 05/02/20 04:24 Sepsis Event Note - Evaluation Sepsis Screening Result: No Definite Risk - Focused Exam Vital Signs: Vital Signs Temp Pulse Resp BP Pulse Ox 05/01/20 09:53 69 16 112/61 96 05/01/20 06:04 36.9 C 61 20 135/77 98 Date Exam was Performed: 05/02/20 Time Exam was Performed: 19:05 Problem List Initiated/Reviewed/Updated: Yes Orders Last 24hrs: Active Orders 24 hr Category Date Time Status Admission Status [Patient Status] [ADT] Routine ADT 05/01/20 08:40 Active EKG Documentation Completion [RC] STAT Care 05/01/20 06:35 Active Orthostatic Vital Signs [RC] STAT Care 05/01/20 06:34 Active Magnesium Sulfate/Water [Magnesium Sulfate in Water Med 05/01/20 08:14 Active Premix] 2 gm Premix Bag 1 bag IV ONETIME Medication Orders Magnesium Sulfate 2 gm/ Premix 50 mls @ 25 mls/hr IV ONETIME ONE Stop: 05/01/20 10:13 Last Admin: 05/01/20 08:24 Dose: 25 mls/hr Documented by: QUYEN Assessment/Plan Comment:: Assessment: This is a 59 yo white male with past medical hx/o HTN, HLD, Hypothyroidism, GERD, Gastritis, HCC/Sick Sinus Syndrome S/p Pacemaker Placement, MGUS, Leukocytopenia, Down Syndrome, Intellectual Disability, OA, Gout, Chronic Diarrhea, Obesity, and Hx/o Gallstones w/o Obstruction who was brought in by his brother for generalized weakness and evaluation of a recent fall at home without obvious trauma. Acute: * Generalized Weakness. This is mainly from not eating but likely multifactorial. Fall precautions and encourage to eat. * Leukocytopenia. This chronic to him. We will monitor. * Moderate Hyponatremia. He presents with a sodium level of 129. This is likely due to GI loss and not eating. * Mild Hypokalemia. He comes in with a K level of 3.4. This 2/2 GI loss and no nutritional intake. * Hypochloremia. He presents with a Cl level of 92. This is likely from GI loss and no oral intake. * Hypomagnesemia. He presents with a Mg level of 1.5 Again due to GI loss and no oral intake. Will replete and monitor. * Elevated Alkaline phosphatase. Liver enzymes were normal. Has a hx/o Gallstone. Will obtain abdominal U/S. * Hypoalbuminemia. He comes in with an albumin level of 3.1. * Status Post fall. No obvious trauma. No head or spinal tenderness on physical examination. * Fear of Eating Resulting in having bowel movement. Consider Psych consult. * Query Abdominal Pain. Carries a hx/o gastritis. Non tender on examination. He was scoped by Dr. Thomason about a year ago with findings of mild diverticulosis, grade I internal hemorrhoids, 4 mm polyp splenic flexure. His Carafate is causing him diarrhea if he is not eating. Will hold it for now. Chronic: HTN, HLD, Hypothyroidism, GERD, Gastritis, HCC/Sick Sinus Syndrome S/p Pacemaker Placement, MGUS, Leukocytopenia, Down Syndrome, Intellectual Disabili ty, OA, Gout, Chronic Diarrhea, Obesity, and Hx/o Gallstones w/o Obstruction . Plan: Admit to [facility]. IV fluid for hydration. regular diet. He may need psych due to fear of eating. Fall precautions. Resume home medications. Thyroid panel and Vit D level if not already done. UA to r/o UTI. Correct e-lytes abnormality. Dietary consult for low protein state. Code statu is full. - Mortality Measure Prognosis:: Good
[2020-05-01] MEDS ORDERED: Ketorolac 30 MG/ML SDV IVPUSH PRN (10:11)
[2020-05-01] MEDS ORDERED: Acetaminophen 325 MG Tab PO PRN (10:11)
[2020-05-01] MEDS ORDERED: Albuterol/Ipratropium 3.0-0.5 MG/3 ML Neb Soln NEB PRN (10:11)
[2020-05-01] MEDS ORDERED: Acetaminophen/HYDROcodone 325-5 MG Tab PO PRN (10:11)
[2020-05-01] MEDS ORDERED: Promethazine 12.5 MG in Sodium Chloride 0.9% 50 ML IV PRN (10:11)
[2020-05-01] MEDS ORDERED: Ondansetron 4 MG/2 ML SDV IV PRN (10:11)
[2020-05-01 11:09] LABS: VITAMIN D,25-HYDROXY 47.1 ng/ml (30.0-100.0)
[2020-05-01] MEDS: Sucralfate 1 GM Tab PO SCH ×2 (12:49→16:27)
[2020-05-01] MEDS: Dextrose 5%-0.45% NaCl 1,000 ML IV SCH (15:11)
--- NOTE | 2020-05-01 20:12 | US ---
Abdominal ultrasound: Multiple real-time images of the abdomen were obtained. Comparison: No prior abdominal ultrasound is available. Liver shows no discrete abnormality. Gallbladder shows gallstones. No gallbladder wall thickening or biliary duct dilatation is seen. Kidneys show no hydronephrosis or mass. Right kidney length is 9.7 cm and left kidney length is 10.1 cm. Spleen size is normal. Aorta shows no aneurysm. Visualized portions of the pancreas show no discrete abnormality. Inferior vena cava is patent. Main portal vein shows normal hepatopedal flow. Impression: 1. Multiple gallstones with no gallbladder wall thickening or biliary duct dilatation. 2. No additional abnormality is appreciated on abdominal ultrasound exam. Diagnostic code #2 This report was dictated in MDT
[2020-05-01] MEDS ORDERED: Megestrol Susp 40 MG/ML 10 ML UD Cup PO SCH (21:00)
[2020-05-01] MEDS: Famotidine 20 MG Tab PO SCH (21:25)
[2020-05-02] MEDS: Dextrose 5%-0.45% NaCl 1,000 ML IV SCH ×3 (00:55→17:24)
[2020-05-02] MEDS ORDERED: Potassium Chloride 20 MEQ Tab.ER PO ONE ×2 (06:15→08:15)
--- NOTE | 2020-05-02 06:15 | PCM.PN ---
- General Info Date of Service: 05/02/20 Admission Dx/Problem (Free Text): Admission Diagnosis/Problem Admission Diagnosis/Problem Hypomagnesemia Subjective Update: 05/02/2020: No significant overnight or acute issues. No diarrhea overnight. He is eating breakfast and tolerating his diet well. Functional Status: Reports: Pain Controlled, Tolerating Diet, Ambulating, Urinating - Review of Systems General: Denies: Fever, Weakness, Chills HEENT: Reports: No Symptoms Pulmonary: Denies: Shortness of Breath Cardiovascular: Denies: Chest Pain, Dyspnea on Exertion, Lightheadedness Gastrointestinal: Denies: Abdominal Pain, Decreased Appetite, Diarrhea, Nausea, Vomiting Genitourinary: Reports: No Symptoms Musculoskeletal: Reports: No Symptoms Skin: Reports: No Symptoms Neurological: Reports: No Symptoms Psychiatric: Denies: Anxiety, Agitation, Hallucinations - Patient Data Vitals - Most Recent: Last Vital Signs Temp 36.0 C L 05/02/20 04:18 Pulse 68 05/02/20 04:18 Resp 18 05/02/20 04:18 BP 129/70 05/02/20 04:18 Pulse Ox 100 05/02/20 04:18 Orthostatic Blood Pressure [ 112/67 Standing] Orthostatic Blood Pressure [ 111/63 Supine] Weight - Most Recent: 64.365 kg I&O - Last 24 Hours: Intake & Output 05/01/20 05/01/20 05/02/20 14:59 22:59 06:59 Intake Total 1850 1500 Output Total 1700 Balance 1850 -200 Lab Results Last 24 Hours: Laboratory Results - last 24 hr 05/01/20 05/01/20 05/01/20 Range/Units 06:48 06:48 06:48 WBC 4.24 (4.23-9.07) K/mm3 RBC 4.37 L (4.63-6.08) M/mm3 Hgb 14.5 (13.7-17.5) gm/dl Hct 40.0 L (40.1-51.0) % MCV 91.5 D (79.0-92.2) fl MCH 33.2 H (25.7-32.2) pg MCHC 36.3 H (32.2-35.5) g/dl RDW Std Deviation 46.0 H (35.1-43.9) fL Plt Count 157 L (163-337) K/mm3 MPV 8.9 L (9.4-12.3) fl Neut % (Auto) (34.0-67.9) % Lymph % (Auto) (21.8-53.1) % [place] % (Auto) (5.3-12.2) % Eos % (Auto) (0.8-7.0) Baso % (Auto) (0.1-1.2) % Neut # (Auto) (1.78-5.38) K/mm3 Lymph # (Auto) (1.32-3.57) K/mm3 [place] # (Auto) (0.30-0.82) K/mm3 Eos # (Auto) (0.04-0.54) K/mm3 Baso # (Auto) (0.01-0.08) K/mm3 Neutrophils % (Manual) 69 H (40-60) % Band Neutrophils % 0 (0-10) % Lymphocytes % (Manual) 20 (20-40) % Atypical Lymphs % 0 % Monocytes % (Manual) 10 (2-10) % Eosinophils % (Manual) 0 L (0.8-7.0) % Basophils % (Manual) 1 (0.2-1.2) Platelet Estimate Adequate Hypochromasia 1+ slight Anisocytosis 1+ slight RBC Morph Comment Abnormal Sodium 129 L D (136-145) mEq/L Potassium 3.4 L (3.5-5.1) mEq/L Chloride 92 L D (98-107) mEq/L Carbon Dioxide 31 (21-32) mEq/L Anion Gap 9.4 (5-15) BUN 4 L (7-18) mg/dL Creatinine 1.1 (0.7-1.3) mg/dL Est Cr Clr Drug Dosing 68.44 mL/min Estimated GFR (MDRD) > 60 (>60) mL/min BUN/Creatinine Ratio 3.6 L (14-18) Glucose 112 H (74-106) mg/dL Uric Acid 4.4 (3.5-7.2) mg/dL Calcium 8.8 (8.5-10.1) mg/dL Magnesium 1.5 L (1.8-2.4) mg/dl Total Bilirubin 1.4 H (0.2-1.0) mg/dL AST 35 (15-37) U/L ALT 33 (16-63) U/L Alkaline Phosphatase 130 H (46-116) U/L Troponin I < 0.017 (0.00-0.056) ng/mL Total Protein 6.8 (6.4-8.2) g/dl Albumin 3.1 L (3.4-5.0) g/dl Globulin 3.7 gm/dL Albumin/Globulin Ratio 0.8 L (1-2) Vitamin D 25-Hydroxy 47.1 (30.0-100.0) ng/ml Free T4 1.38 (0.76-1.46) ng/dL TSH 3rd Generation 1.295 (0.358-3.74) uIU/mL Urine Color (Yellow) Urine Appearance (Clear) Urine pH (5.0-8.0) Ur Specific [place] (1.005-1.030) Urine Protein (Negative) Urine Glucose (UA) (Negative) Urine Ketones (Negative) Urine Occult Blood (Negative) Urine Nitrite (Negative) Urine Bilirubin (Negative) Urine Urobilinogen (0.2-1.0) Ur Leukocyte Esterase (Negative) COVID-19 (NOBLE) (NEGATIVE) 05/01/20 05/01/20 05/01/20 Range/Units 08:50 10:40 18:20 WBC (4.23-9.07) K/mm3 RBC (4.63-6.08) M/mm3 Hgb (13.7-17.5) gm/dl Hct (40.1-51.0) % MCV (79.0-92.2) fl MCH (25.7-32.2) pg MCHC (32.2-35.5) g/dl RDW Std Deviation (35.1-43.9) fL Plt Count (163-337) K/mm3 MPV (9.4-12.3) fl Neut % (Auto) (34.0-67.9) % Lymph % (Auto) (21.8-53.1) % [place] % (Auto) (5.3-12.2) % Eos % (Auto) (0.8-7.0) Baso % (Auto) (0.1-1.2) % Neut # (Auto) (1.78-5.38) K/mm3 Lymph # (Auto) (1.32-3.57) K/mm3 [place] # (Auto) (0.30-0.82) K/mm3 Eos # (Auto) (0.04-0.54) K/mm3 Baso # (Auto) (0.01-0.08) K/mm3 Neutrophils % (Manual) (40-60) % Band Neutrophils % (0-10) % Lymphocytes % (Manual) (20-40) % Atypical Lymphs % % Monocytes % (Manual) (2-10) % Eosinophils % (Manual) (0.8-7.0) % Basophils % (Manual) (0.2-1.2) Platelet Estimate Hypochromasia Anisocytosis RBC Morph Comment Sodium 137 (136-145) mEq/L Potassium 3.5 (3.5-5.1) mEq/L Chloride 100 (98-107) mEq/L Carbon Dioxide 34 H (21-32) mEq/L Anion Gap 6.5 (5-15) BUN 4 L (7-18) mg/dL Creatinine 1.1 (0.7-1.3) mg/dL Est Cr Clr Drug Dosing 58.91 mL/min Estimated GFR (MDRD) > 60 (>60) mL/min BUN/Creatinine Ratio 3.6 L (14-18) Glucose 163 H (74-106) mg/dL Uric Acid (3.5-7.2) mg/dL Calcium 9.0 (8.5-10.1) mg/dL Magnesium (1.8-2.4) mg/dl Total Bilirubin (0.2-1.0) mg/dL AST (15-37) U/L ALT (16-63) U/L Alkaline Phosphatase (46-116) U/L Troponin I (0.00-0.056) ng/mL Total Protein (6.4-8.2) g/dl Albumin (3.4-5.0) g/dl Globulin gm/dL Albumin/Globulin Ratio (1-2) Vitamin D 25-Hydroxy (30.0-100.0) ng/ml Free T4 (0.76-1.46) ng/dL TSH 3rd Generation (0.358-3.74) uIU/mL Urine Color Yellow (Yellow) Urine Appearance Clear (Clear) Urine pH 7.0 (5.0-8.0) Ur Specific [place] 1.015 (1.005-1.030) Urine Protein Negative (Negative) Urine Glucose (UA) Negative (Negative) Urine Ketones Negative (Negative) Urine Occult Blood Trace-lysed H (Negative) Urine Nitrite Negative (Negative) Urine Bilirubin Negative (Negative) Urine Urobilinogen 0.2 (0.2-1.0) Ur Leukocyte Esterase 3+ H (Negative) COVID-19 (NOBLE) Negative (NEGATIVE) 05/02/20 05/02/20 Range/Units 04:24 04:24 WBC 3.60 L (4.23-9.07) K/mm3 RBC 4.39 L (4.63-6.08) M/mm3 Hgb 14.5 (13.7-17.5) gm/dl Hct 41.2 (40.1-51.0) % MCV 93.8 H (79.0-92.2) fl MCH 33.0 H (25.7-32.2) pg MCHC 35.2 (32.2-35.5) g/dl RDW Std Deviation 48.5 H (35.1-43.9) fL Plt Count 174 (163-337) K/mm3 MPV 9.6 (9.4-12.3) fl Neut % (Auto) 63.8 (34.0-67.9) % Lymph % (Auto) 23.1 (21.8-53.1) % [place] % (Auto) 11.1 (5.3-12.2) % Eos % (Auto) 0.6 L (0.8-7.0) Baso % (Auto) 1.1 (0.1-1.2) % Neut # (Auto) 2.30 (1.78-5.38) K/mm3 Lymph # (Auto) 0.83 L (1.32-3.57) K/mm3 [place] # (Auto) 0.40 (0.30-0.82) K/mm3 Eos # (Auto) 0.02 L (0.04-0.54) K/mm3 Baso # (Auto) 0.04 (0.01-0.08) K/mm3 Neutrophils % (Manual) (40-60) % Band Neutrophils % (0-10) % Lymphocytes % (Manual) (20-40) % Atypical Lymphs % % Monocytes % (Manual) (2-10) % Eosinophils % (Manual) (0.8-7.0) % Basophils % (Manual) (0.2-1.2) Platelet Estimate Hypochromasia Anisocytosis RBC Morph Comment Sodium 138 (136-145) mEq/L Potassium 3.3 L (3.5-5.1) mEq/L Chloride 102 (98-107) mEq/L Carbon Dioxide 32 (21-32) mEq/L Anion Gap 7.3 (5-15) BUN 4 L (7-18) mg/dL Creatinine 1.0 (0.7-1.3) mg/dL Est Cr Clr Drug Dosing 64.80 mL/min Estimated GFR (MDRD) > 60 (>60) mL/min BUN/Creatinine Ratio 4.0 L (14-18) Glucose 119 H (74-106) mg/dL Uric Acid (3.5-7.2) mg/dL Calcium 8.6 (8.5-10.1) mg/dL Magnesium 2.0 (1.8-2.4) mg/dl Total Bilirubin (0.2-1.0) mg/dL AST (15-37) U/L ALT (16-63) U/L Alkaline Phosphatase (46-116) U/L Troponin I (0.00-0.056) ng/mL Total Protein (6.4-8.2) g/dl Albumin (3.4-5.0) g/dl Globulin gm/dL Albumin/Globulin Ratio (1-2) Vitamin D 25-Hydroxy (30.0-100.0) ng/ml Free T4 (0.76-1.46) ng/dL TSH 3rd Generation (0.358-3.74) uIU/mL Urine Color (Yellow) Urine Appearance (Clear) Urine pH (5.0-8.0) Ur Specific [place] (1.005-1.030) Urine Protein (Negative) Urine Glucose (UA) (Negative) Urine Ketones (Negative) Urine Occult Blood (Negative) Urine Nitrite (Negative) Urine Bilirubin (Negative) Urine Urobilinogen (0.2-1.0) Ur Leukocyte Esterase (Negative) COVID-19 (NOBLE) (NEGATIVE) Med Orders - Current: Current Medications Acetaminophen (Tylenol) 650 mg PO Q4H PRN PRN Reason: Pain (Mild 1-3)/fever Hydrocodone Bitart/Acetaminophen ([place] 325-5 Mg) 1 tab PO Q4H PRN PRN Reason: Pain (moderate 4-6) Albuterol/Ipratropium (Duoneb 3.0-0.5 Mg/3 Ml) 3 ml NEB Q4H PRN PRN Reason: Shortness Of Breath/wheezing Allopurinol (Zyloprim) 300 mg PO MoWeFr@0800 [facility] Cholecalciferol (Vitamin D3) 25 mcg PO DAILY [facility] Cyanocobalamin (Vitamin B12) 1,000 mcg PO DAILY [facility] Famotidine (Pepcid) 20 mg PO BID [facility] Last Admin: 05/01/20 21:25 Dose: 20 mg Documented by: Dextrose/Sodium Chloride (Dextrose 5%-1/2 Ns) 1,000 mls @ 125 mls/hr IV ASDIRECTED [facility] Last Admin: 05/02/20 00:55 Dose: 125 mls/hr Documented by: Promethazine HCl 12.5 mg/ (Sodium Chloride) 50.5 mls @ 100 mls/hr IV Q6H PRN PRN Reason: Nausea/Vomiting Ketorolac Tromethamine (Toradol) 30 mg IVPUSH Q6H PRN PRN Reason: Pain (moderate 4-6) Levothyroxine Sodium (Synthroid) 50 mcg PO DAILY [facility] Multivitamins (Thera) 1 each PO DAILY [facility] Ondansetron HCl (Zofran) 4 mg IV Q6H PRN PRN Reason: Nausea/Vomiting Simvastatin (Zocor) 20 mg PO DAILY [facility] Discontinued Medications Lactated Ringer's (Ringers, Lactated) 1,000 mls @ 999 mls/hr IV .BOLUS ONE Stop: 05/01/20 07:36 Last Admin: 05/01/20 06:41 Dose: 999 mls/hr Documented by: Magnesium Sulfate 2 gm/ Premix 50 mls @ 25 mls/hr IV ONETIME ONE Stop: 05/01/20 10:13 Last Admin: 05/01/20 08:24 Dose: 25 mls/hr Documented by: Megestrol Acetate (Megace 40 Mg/Ml Susp) 400 mg PO BID [facility] Sucralfate (Carafate) 1 gm PO TIDMEALS [facility] Last Admin: 05/01/20 16:27 Dose: Not Given Documented by: - Exam General: Alert, Cooperative, No Acute Distress, Other (very friendly and smiles a lot) HEENT: Pupils Equal, Pupils Reactive, Mucous Membr. Moist/Ona, Other (poor dentition) Neck: Supple Lungs: Clear to Auscultation, Normal Respiratory Effort Cardiovascular: Regular Rate, Regular Rhythm GI/Abdominal Exam: Normal Bowel Sounds, Soft, Non-Tender, No Organomegaly, No Distention, No Abnormal Bruit (Male) Exam: Deferred Back Exam: Normal Inspection, Full Range of Motion Extremities: Normal Inspection, Normal Range of Motion, Non-Tender, No Pedal Edema, Normal Capillary Refill Peripheral Pulses: 2+: Dorsalis Pedis (L), Dorsalis Pedis (R) Skin: Warm, Dry, Intact Neurological: No New Focal Deficit Psy/Mental Status: Alert, Normal Affect, Normal Mood Sepsis Event Note - Evaluation Sepsis Screening Result: No Definite Risk - Focused Exam Vital Signs: Vital Signs Temp Pulse Resp BP Pulse Ox 05/02/20 04:18 36.0 C L 68 18 129/70 100 05/02/20 00:58 36.5 C 60 14 133/71 98 05/01/20 20:41 36.8 C 73 16 103/81 100 Date Exam was Performed: 05/02/20 Time Exam was Performed: 19:07 - Problem List Review Problem List Initiated/Reviewed/Updated: Yes - My Orders Last 24 Hours: My Active Orders 05/01/20 10:11 Height and Weight [RC] 04 Oxygen Therapy [RC] PRN Up With Assistance [RC] QSHIFT VTE/DVT Education [RC] DAILY Vital Signs [RC] 22,04,10,16 Consult to Case Management/[employer]inder [CONS] Routine Consult to Spiritual Care [CONS] Routine OT Evaluation and Treatment [CONS] Routine PT Evaluation and Treatment [CONS] Routine Acetaminophen [Tylenol] 650 mg PO Q4H PRN Acetaminophen/HYDROcodone [[place] 325-5 MG] 1 tab PO Q4H PRN Albuterol/Ipratropium [DuoNeb 3.0-0.5 MG/3 ML] 3 ml NEB Q4H PRN Ketorolac [Toradol] 30 mg IVPUSH Q6H PRN Ondansetron [Zofran] 4 mg IV Q6H PRN Promethazine [Phenergan] 12.5 mg Sodium Chloride 0.9% [Normal Saline] 50 ml IV Q6H Resuscitation Status Routine 05/01/20 10:12 Cardiac Monitoring [RC] CONTINUOUS Intake and Output [RC] 04,16 Sequential Compression Device [OM.PC] Per Unit Routine 05/01/20 10:14 RT Aerosol Therapy [RC] ASDIRECTED 05/01/20 10:15 Dextrose 5%-0.45% NaCl [Dextrose 5%-1/2 NS] 1,000 ml IV ASDIRECTED 05/01/20 10:40 CULTURE URINE [RM] Stat 05/01/20 Lunch Regular Diet [DIET] 05/01/20 15:16 Consult to Physician [CONS] Routine 05/01/20 15:17 Notify Provider Consults [RC] ASDIRECTED 05/01/20 15:51 KUB [Abdomen 1V Flat] [CR] Routine 05/01/20 18:12 Antiembolic Devices [RC] BID SCD [Sequential Compression Device] [OM.PC] Routine 05/01/20 21:00 Famotidine [Pepcid] 20 mg PO BID 05/02/20 09:00 Cholecalciferol (Vitamin D3) [Vitamin D3] 25 mcg PO DAILY Cyanocobalamin (Vitamin B12) [Vitamin B12] 1,000 mcg PO DAILY Levothyroxine [Synthroid] 50 mcg PO DAILY Multivitamins,Therapeutic [Thera] 1 each PO DAILY Simvastatin [Zocor] 20 mg PO DAILY 05/03/20 05:11 BASIC METABOLIC PANEL,BMP [CHEM] AM MAGNESIUM [CHEM] AM 05/03/20 08:00 allopurinoL [Zyloprim] 300 mg PO MoWeFr@0800 05/04/20 05:11 BASIC METABOLIC PANEL,BMP [CHEM] AM MAGNESIUM [CHEM] AM - Plan Plan:: Assessment: This is a 59 yo white male with past medical hx/o HTN, HLD, Hypothyroidism, GERD, Gastritis, HCC/Sick Sinus Syndrome S/p Pacemaker Placement, MGUS, Leukocytopenia, Down Syndrome, Intellectual Disability, OA, Gout, Chronic Diarrhea, Obesity, and Hx/o Gallstones w/o Obstruction who was brought in by his brother for generalized weakness and evaluation of a recent fall at home wi thout obvious trauma. Acute: * Generalized Weakness. This is mainly from not eating but likely multifactorial. Fall precautions and encourage to eat. * Leukocytopenia. This chronic to him. 3.6 today. Continue to monitor. * Mild Hypokalemia. He comes in with a K level of 3.4, 3.3 today. This 2/2 GI loss and no nutritional intake. Will replete and monitor. * Hypochloremia. He presents with a Cl level of 92. This is likely from GI loss and no oral intake. * Hypomagnesemia. He presents with a Mg level of 1.5 Again due to GI loss and no oral intake. Will replete and monitor. * Elevated Alkaline phosphatase. Liver enzymes were normal. Has a hx/o Gallstone. Abdominal U/S report read as multiple gallstones with no GBW thickening or biliary duct dilatation. * Hypoalbuminemia. He comes in with an albumin level of 3.1. He just started back eating. * Status Post fall. No obvious trauma. No head or spinal tenderness on physical examination. * Fear of Eating Resulting in having bowel movement. Consider Psych consult * Abdominal Pain. Carries a hx/o gastritis. Non tender on examination. He was scoped by Dr. Thomason about a year ago with findings of mild diverticulosis, grade I internal hemorrhoids, 4 mm polyp splenic flexure. His Carafate is causing him diarrhea if he is not eating. No GI complaints. Continue to hold it. Resolved: * Moderate Hyponatremia. He presents with a sodium level of 129. This is likely due to GI loss and not eating. * Hypochloremia. He presents with a Cl level of 92. This is likely from GI loss and no oral intake. Now within normal range. * Hypomagnesemia. He presents with a Mg level of 1.5 Again due to GI loss and no oral intake. Now within normal range. Chronic: HTN, HLD, Hypothyroidism, GERD, Gastritis, HCC/Sick Sinus Syndrome S/p Pacemaker Placement, MGUS, Leukocytopenia, Down Syndrome, Intellectual Disability, OA, Gout, Chronic Diarrhea, Obesity, and Hx/o Gallstones w/o Obstruction . Plan: Continue current treatment. He seems to be doing a lot better according to her sister who was present at bedside. IV fluid for hydration. Regular diet- he can eat whatever. He may need psych due to fear of eating. Fall precautions. Thyroid panel and Vit D levels both normal. UA negative for UTI. Dietary consult for low protein state. Code statu is full. Possible discharge in AM.
[2020-05-02] MEDS: Multivitamins,Therapeutic Tab PO SCH (09:22)
[2020-05-02] MEDS: Simvastatin 20 MG Tab PO SCH (09:22)
[2020-05-02] MEDS: Levothyroxine 50 MCG Tab PO SCH (09:22)
[2020-05-02] MEDS: Cyanocobalamin (Vitamin B12) 1,000 MCG Tab PO SCH (09:23)
[2020-05-02] MEDS: Cholecalciferol (Vitamin D3) 25 MCG Tab PO SCH (09:23)
[2020-05-02] MEDS: Famotidine 20 MG Tab PO SCH ×2 (09:23→20:30)
[2020-05-02] MEDS ORDERED: cefTRIAXone 1 GM in Sodium Chloride 0.9% 100 ML IV SCH (15:00)
[2020-05-03] MEDS: Dextrose 5%-0.45% NaCl 1,000 ML IV SCH ×3 (01:23→17:24)
--- NOTE | 2020-05-03 05:36 | CR ---
Abdomen: Portable supine view of the abdomen was obtained. Comparison: No prior abdominal x-ray. Slight degenerative change and minimal scoliosis is noted within the spine. Gas is noted throughout the colon which does not appear to be obstructive and may represent minimal ileus. No soft tissue abnormality or abnormal calcifications are seen. Impression: 1. Slight increased gas throughout the colon which does not appear to be obstructive and most likely represents minimal ileus. Diagnostic code #2 This report was dictated in MDT
[2020-05-03] MEDS ORDERED: Allopurinol 300 MG Tab PO SCH (08:00)
[2020-05-03] MEDS: Famotidine 20 MG Tab PO SCH ×2 (09:03→20:53)
[2020-05-03] MEDS: Cyanocobalamin (Vitamin B12) 1,000 MCG Tab PO SCH (09:04)
[2020-05-03] MEDS: Cholecalciferol (Vitamin D3) 25 MCG Tab PO SCH (09:04)
[2020-05-03] MEDS: Levothyroxine 50 MCG Tab PO SCH (09:04)
[2020-05-03] MEDS: Simvastatin 20 MG Tab PO SCH (09:06)
[2020-05-03] MEDS: Multivitamins,Therapeutic Tab PO SCH (09:06)
[2020-05-03] MEDS ORDERED: Potassium Chloride 20 MEQ Tab.ER PO ONE (09:39)
[2020-05-03] MEDS ORDERED: Magnesium Sulfate/Water 2 GM in Premix Bag 1 BAG IV ONE (09:39)
--- NOTE | 2020-05-03 09:59 | PCM.PN ---
- General Info Date of Service: 05/03/20 Admission Dx/Problem (Free Text): Admission Diagnosis/Problem Admission Diagnosis/Problem Hypomagnesemia Subjective Update: 05/03/2020: No overnight issues. He slept well and continue to eat and drink fine. His UA grew Kleb pneumoniae. He remains afebrile since admission. He is low on K and Mg this morning. 05/02/2020: No significant overnight or acute issues. No diarrhea overnight. He is eating breakfast and tolerating his diet well. Functional Status: Reports: Pain Controlled, Tolerating Diet, Ambulating, Urinating - Review of Systems General: Denies: Fever, Weakness, Fatigue, Malaise HEENT: Reports: No Symptoms Pulmonary: Denies: Shortness of Breath Cardiovascular: Denies: Chest Pain, Dyspnea on Exertion, Lightheadedness Gastrointestinal: Denies: Abdominal Pain, Diarrhea, Nausea, Vomiting Genitourinary: Reports: No Symptoms Musculoskeletal: Reports: No Symptoms Skin: Reports: No Symptoms Neurological: Denies: Gait Disturbance Psychiatric: Reports: Confusion (baseline confusion due to intellectual disability). Denies: Depression, Anxiety, Agitation, Hallucinations - Patient Data Vitals - Most Recent: Last Vital Signs Temp 36.7 C 05/03/20 09:01 Pulse 59 L 05/03/20 09:01 Resp 18 05/03/20 09:01 BP 104/73 05/03/20 09:01 Pulse Ox 100 05/03/20 09:01 Orthostatic Blood Pressure [ 112/67 Standing] Orthostatic Blood Pressure [ 111/63 Supine] Weight - Most Recent: 65.363 kg I&O - Last 24 Hours: Intake & Output 05/02/20 05/03/20 05/03/20 22:59 06:59 14:59 Intake Total 2324 1524 Output Total 1999 700 Balance 324 824 Lab Results Last 24 Hours: Laboratory Results - last 24 hr 05/03/20 Range/Units 04:31 Sodium 138 (136-145) mEq/L Potassium 3.4 L (3.5-5.1) mEq/L Chloride 103 (98-107) mEq/L Carbon Dioxide 28 (21-32) mEq/L Anion Gap 10.4 (5-15) BUN 3 L (7-18) mg/dL Creatinine 0.9 (0.7-1.3) mg/dL Est Cr Clr Drug Dosing 72.00 mL/min Estimated GFR (MDRD) > 60 (>60) mL/min BUN/Creatinine Ratio 3.3 L (14-18) Glucose 123 H (74-106) mg/dL Calcium 8.5 (8.5-10.1) mg/dL Magnesium 1.6 L (1.8-2.4) mg/dl Ata Results Last 24 Hours: Microbiology 05/01/20 10:40 Urine Culture - Final Urine, Clean Catch Klebsiella Pneumoniae Med Orders - Current: Current Medications Acetaminophen (Tylenol) 650 mg PO Q4H PRN PRN Reason: Pain (Mild 1-3)/fever Last Admin: 05/03/20 00:25 Dose: 650 mg Documented by: Hydrocodone Bitart/Acetaminophen ([place] 325-5 Mg) 1 tab PO Q4H PRN PRN Reason: Pain (moderate 4-6) Albuterol/Ipratropium (Duoneb 3.0-0.5 Mg/3 Ml) 3 ml NEB Q4H PRN PRN Reason: Shortness Of Breath/wheezing Allopurinol (Zyloprim) 300 mg PO MoWeFr@0800 [facility] Last Admin: 05/03/20 09:05 Dose: 300 mg Documented by: Cholecalciferol (Vitamin D3) 25 mcg PO DAILY [facility] Last Admin: 05/03/20 09:04 Dose: 25 mcg Documented by: Cyanocobalamin (Vitamin B12) 1,000 mcg PO DAILY [facility] Last Admin: 05/03/20 09:04 Dose: 1,000 mcg Documented by: Famotidine (Pepcid) 20 mg PO BID [facility] Last Admin: 05/03/20 09:03 Dose: 20 mg Documented by: Dextrose/Sodium Chloride (Dextrose 5%-1/2 Ns) 1,000 mls @ 125 mls/hr IV ASDIRECTED [facility] Last Admin: 05/03/20 09:14 Dose: 125 mls/hr Documented by: Promethazine HCl 12.5 mg/ (Sodium Chloride) 50.5 mls @ 100 mls/hr IV Q6H PRN PRN Reason: Nausea/Vomiting Magnesium Sulfate 2 gm/ Premix 50 mls @ 25 mls/hr IV ONETIME ONE Stop: 05/03/20 11:38 Ceftriaxone Sodium 1 gm/ (Sodium Chloride) 100 mls @ 200 mls/hr IV Q24H [facility] Ketorolac Tromethamine (Toradol) 30 mg IVPUSH Q6H PRN PRN Reason: Pain (moderate 4-6) Levothyroxine Sodium (Synthroid) 50 mcg PO DAILY [facility] Last Admin: 05/03/20 09:04 Dose: 50 mcg Documented by: Multivitamins (Thera) 1 each PO DAILY [facility] Last Admin: 05/03/20 09:06 Dose: 1 each Documented by: Ondansetron HCl (Zofran) 4 mg IV Q6H PRN PRN Reason: Nausea/Vomiting Simvastatin (Zocor) 20 mg PO DAILY [facility] Last Admin: 05/03/20 09:06 Dose: 20 mg Documented by: Discontinued Medications Lactated Ringer's (Ringers, Lactated) 1,000 mls @ 999 mls/hr IV .BOLUS ONE Stop: 05/01/20 07:36 Last Admin: 05/01/20 06:41 Dose: 999 mls/hr Documented by: Magnesium Sulfate 2 gm/ Premix 50 mls @ 25 mls/hr IV ONETIME ONE Stop: 05/01/20 10:13 Last Admin: 05/01/20 08:24 Dose: 25 mls/hr Documented by: Ceftriaxone Sodium 1 gm/ (Sodium Chloride) 100 mls @ 200 mls/hr IV Q24H [facility] Last Admin: 05/02/20 14:57 Dose: 200 mls/hr Documented by: Megestrol Acetate (Megace 40 Mg/Ml Susp) 400 mg PO BID [facility] Potassium Chloride (Klor-Con M20) 40 meq PO ONETIME ONE Stop: 05/02/20 06:16 Last Admin: 05/02/20 06:40 Dose: 40 meq Documented by: Potassium Chloride (Klor-Con M20) 60 meq PO ONETIME ONE Stop: 05/02/20 08:16 Last Admin: 05/02/20 11:02 Dose: Not Given Documented by: Potassium Chloride (Klor-Con M20) 60 meq PO ONETIME ONE Stop: 05/03/20 09:40 Sucralfate (Carafate) 1 gm PO TIDMEALS [facility] Last Admin: 05/01/20 16:27 Dose: Not Given Documented by: - Exam General: Alert, Cooperative, No Acute Distress HEENT: Pupils Equal, Pupils Reactive, Mucous Membr. Moist/[place], Other (poor dentition) Neck: Supple Lungs: Clear to Auscultation, Normal Respiratory Effort Cardiovascular: Regular Rate, Regular Rhythm GI/Abdominal Exam: Normal Bowel Sounds, Soft, No Organomegaly, No Distention, No Abnormal Bruit, Tender (lower abdomen) (Male) Exam: Deferred Back Exam: Normal Inspection, Decreased Range of Motion Extremities: Normal Inspection, Normal Range of Motion, Non-Tender, No Pedal Edema, Normal Capillary Refill Peripheral Pulses: 2+: Dorsalis Pedis (L), Dorsalis Pedis (R) Skin: Warm, Dry, Intact Neurological: No New Focal Deficit Psy/Mental Status: Alert, Normal Affect, Normal Mood Physical Findings Comments:: Has baseline down syndrome Sepsis Event Note - Evaluation Sepsis Screening Result: No Definite Risk - Focused Exam Vital Signs: Vital Signs Temp Pulse Resp BP Pulse Ox 05/03/20 09:01 36.7 C 59 L 18 104/73 100 05/03/20 02:52 36.7 C 60 14 138/71 100 05/03/20 00:22 36.2 C 62 14 113/86 100 Date Exam was Performed: 05/03/20 Time Exam was Performed: 17:34 - Problem List Review Problem List Initiated/Reviewed/Updated: Yes - My Orders Last 24 Hours: My Active Orders 05/02/20 09:00 Cholecalciferol (Vitamin D3) [Vitamin D3] 25 mcg PO DAILY Cyanocobalamin (Vitamin B12) [Vitamin B12] 1,000 mcg PO DAILY Levothyroxine [Synthroid] 50 mcg PO DAILY Multivitamins,Therapeutic [Thera] 1 each PO DAILY Simvastatin [Zocor] 20 mg PO DAILY 05/03/20 08:00 allopurinoL [Zyloprim] 300 mg PO MoWeFr@0800 05/03/20 09:39 Magnesium Sulfate/Water [Magnesium Sulfate in Water Premix] 2 gm Premix Bag 1 bag IV ONETIME 05/03/20 15:00 cefTRIAXone [Rocephin] 1 gm Sodium Chloride 0.9% [Normal Saline] 100 ml IV Q24H 05/04/20 05:11 BASIC METABOLIC PANEL,BMP [CHEM] AM MAGNESIUM [CHEM] AM - Plan Plan:: Assessment: This is a 59 yo white male with past medical hx/o HTN, HLD, Hypothyroidism, GERD, Gastritis, HCC/Sick Sinus Syndrome S/p Pacemaker Placement, MGUS, Leukocytopenia, Down Syndrome, Intellectual Disability, OA, Gout, Chronic Diarrhea, Obesity, and Hx/o Gallstones w/o Obstruction who was brought in by his brother for generalized weakness and evaluation of a recent fall at home without obvious trauma. Acute: * Generalized Weakness. This is mainly from not eating but likely multifactorial. Fall precautions and encourage to eat. * Leukocytopenia. This chronic to him. 3.6 today. Continue to monitor. * Mild Hypokalemia. He comes in with a K level of 3.4, 3.3 today. This 2/2 GI loss and no nutritional intake. Will replete and monitor. * Hypomagnesemia. He presents with a Mg level of 1.5, now 1.6. Again due to GI loss and no oral intake. Will replete and monitor. * Elevated Alkaline phosphatase. Liver enzymes were normal. Has a hx/o Gallstone. Abdominal U/S report read as multiple gallstones with no GBW thickening or biliary duct dilatation. * Hypoalbuminemia. He comes in with an albumin level of 3.1. He just started back eating. * Hyperglycemia. He carries no hx/o diabetes or glucose intolerance. This is likely due to stress. Will allow permissive hyperglycemia since he has not been eating much since admission. * Status Post fall. No obvious trauma. No head or spinal tenderness on physical examination. * Fear of Eating Resulting in having bowel movement. Consider Psych consult * Abdominal Pain. Carries a hx/o gastritis. Mild tenderness on lower abdomen. He was scoped by Dr. Thomason about a year ago with findings of mild diverticulosis, grade I internal hemorrhoids, 4 mm polyp splenic flexure. His Carafate is causing him diarrhea if he is not eating. KUB shows increased gas throughout the colon w/o obstruction. This is likely due to UTI. He is receiving antibiotic. * UTI 2/2 Kleb pneumoniae. He has been getting 1 gram Rocephin Daily. Will continue for total or a of 3 days Resolved: * Moderate Hyponatremia. He presents with a sodium level of 129. This is likely due to GI loss and not eating. * Hypochloremia. He presents with a Cl level of 92. This is likely from GI loss and no oral intake. Now within normal range. Chronic: HTN, HLD, Hypothyroidism, GERD, Gastritis, HCC/Sick Sinus Syndrome S/p Pacemaker Placement, MGUS, Leukocytopenia, Down Syndrome, Intellectual Disability, OA, Gout, Chronic Diarrhea, Obesity, and Hx/o Gallstones w/o Obstruction . Plan: Continue current treatment. He seems to be doing a lot better according to her sister who was present at bedside. IV fluid for hydration. Regular diet- he can eat whatever. He may need psych due to fear of eating. Fall precautions. Thyroid panel and Vit D levels both normal. UA negative for UTI. Dietary consult for low protein state. Code statu is full. Possible discharge in AM.
[2020-05-03] MEDS ORDERED: cefTRIAXone 1 GM in Sodium Chloride 0.9% 100 ML IV SCH (15:00)
[2020-05-03] MEDS ORDERED: Mirtazapine 15 MG Tab PO SCH (21:00)
--- NOTE | 2020-05-03 23:24 | CONS ---
CONSULTING PHYSICIAN: Roldan Barron MD DATE OF CONSULTATION: 05/03/2020 Site where the services are provided is [facility] in [place], [place]. Site where the services are provided from our offices in [place], [place]. Length of service for this 60-minute inpatient telemedicine event is 60 minutes. IDENTIFICATION: The patient is a 59-year-old male who is admitted to the inpatient Med/Surg unit at [facility] in [place], [place]. He is seen for psychiatric consultation per the request of staff attending, Dr. Alexandra, and his treatment team. He is accompanied by his brother, Wm, and his sister, Eliza, who also participated in the interview actively and answered quite a bit of the questions during the interview. CHIEF COMPLAINT: "Well, he quit eating" per the patient's brother. HISTORY OF PRESENT ILLNESS: The patient is a 59-year-old male who is admitted to the inpatient Med/Surg unit, [facility] in [place], [place], on 05/01/2020 for complications from hypomagnesemia. Apparently, the patient had stopped eating a couple weeks ago and has also been having fears of having bowel movements. He has lost about 20 pounds prior to his hospitalization and he had been drinking a lot of water. The patient's brother and sister state "he drinks a lot of pop throughout the day," it sounds like it is about 8 to 10 large bottles of pop. The sister, Eliza, also states that the patient "worries a lot" and then lately, things have been really hard for the patient because of the [place] viral pandemic that has been sweeping the nation and the world, as the patient has not been able to be as active as he normally has. The patient has a diagnosis of MR and he does like to be active and when he is not able to get out, this brings him down according to his brother and sister. The patient has no history of suicidal or homicidal ideation. No history of psychosis, delusions, or paranoia and no history of illicit substance use or excessive alcohol use, but the patient's brother and sister, who take care of the patient quite a bit, feel that he might be depressed because of this [place] coronavirus issue and they are open to having him try something that will help improve his mood, reduce his anxiety, and possibly stimulate his appetite. They do note that he has been starting to eat again since he has been hospitalized and they feel that this has been a positive development. MEDICATIONS: At time of admission, none. ALLERGIES: No known drug allergies. PAST MEDICAL HISTORY: The patient had a pacemaker placed a few years ago. REVIEW OF SYSTEMS: Aside from cardiac, all other major organ systems are negative at this point in time for acute difficulties or complications. FAMILY PSYCHIATRIC AND CD HISTORY: None reported. PAST PSYCHIATRIC AND CD HISTORY: The patient denies any previous psychiatric hospitalizations or chemical dependency treatment. He has 1 beer per day in the afternoon habit, but otherwise, has no other history of alcohol use or illicit substance use. PAST PSYCHIATRIC DIAGNOSIS: He has a history of MR. He has no past psychiatric medication history. SOCIAL HISTORY: The patient is born and raised in [place], [place]. His sister works at [employer]. The patient's brother works for [employer], but retired now, and the patient lives with his brother in [place], [place]. MENTAL STATUS EXAM: The patient is a 59-year-old white male in no apparent distress. Speech is of increased latency of response and short duration of utterance. The patient is not cognitively oriented to place or date on interview, but is not certain if this is because the patient is anxious and does not answer of his own volition the questions or that he is not able to process these facts. There are no abnormal motor movements or tics observed. Gait and station are not observed. This patient is lying in bed during the interview. Mood is not articulated. Affect is guarded and somewhat restricted overall, but does become more visibly relax as the interview progresses and the patient is cooperative overall. There is no behavioral or stated evidence of acute suicidal or homicidal ideation or acute psychotic, delusional, or paranoid symptoms. Thought processes are retarded. There are no manic symptoms or loose associations evident. Judgment and insight do appear impaired secondary to the patient's mental retardation. Motivation for help appears fair to good. VITAL SIGNS: 143/73, 59, 18, 98 degrees. IMPRESSION: [place] I. 1. Major depressive disorder, F32.1. 2. Anxiety disorder, not otherwise specified, 41.9. [place] II: History of mental retardation, moderate to mild. [place] III: 1. History of low magnesium. 2. History of pacemaker placement approximately 2 to 3 years ago. [place] IV: Severe. [place] V: 60. PLAN: 1. Recommend sodium restriction. 2. Recommend the patient maintain good hydration status to help with full function throughout the day. 3. Begin trial of Remeron 15 mg at bedtime to help with symptoms of depression as well as for anxiety reduction, sleep initiation, and maintenance. It also may be potential benefit that this medication may help stimulate the patient's appetite to going forward. 4. The patient and the patient's brother and sister apprised of benefits and side effects of his newly initiated psychiatric medication regimen and the patient's brother and sister acknowledged their understanding of these facts, have no further questions by the end of the interview session. 5. Recommend that when patient is medically stabilized and discharged back to the community that he follows up with Outpatient Psychiatry to assess his overall function and efficacy of his newly initiated psychiatric medication regimen. 6. We will continue to follow up with the patient on an as needed basis while he remains on the MedSurg unit at [facility] in [place], [place]. 7. We will follow up with the patient sooner if any complications in the interim. 8. Crisis plan is in place. TINY /[id number]
[2020-05-04] MEDS: Dextrose 5%-0.45% NaCl 1,000 ML IV SCH (01:56)
[2020-05-04 09:03] VITALS: BP 117/79; PULSE 71
[2020-05-04] MEDS: Cholecalciferol (Vitamin D3) 25 MCG Tab PO SCH (09:03)
[2020-05-04] MEDS: Famotidine 20 MG Tab PO SCH (09:03)
[2020-05-04] MEDS: Cyanocobalamin (Vitamin B12) 1,000 MCG Tab PO SCH (09:03)
[2020-05-04] MEDS: Levothyroxine 50 MCG Tab PO SCH (09:03)
[2020-05-04] MEDS: Multivitamins,Therapeutic Tab PO SCH (09:04)
[2020-05-04] MEDS: Simvastatin 20 MG Tab PO SCH (09:04)
--- NOTE | 2020-05-04 10:45 | PCM.DCSUM1 ---
Discharge Summary - Hospital Course HPI Initial Comments: This is a 59 yo white male with past medical hx/o HTN, HLD, Hypothyroidism, GERD, Gastritis, HCC/Sick Sinus Syndrome S/p Pacemaker Placement, MGUS, Leukocytopenia, Down Syndrome, Intellectual Disability, OA, Gout, Obesity, and Hx/o Gallstones w/o Obstruction who brought in by his brother generalized weakness and evaluation of a recent fall at home without obvious trauma. According to family, he has not been eating for the past 2 weeks or so because he does not want to have bowel movement ("shit"). He has had about 12-13 lbs weight loss for the past couple months. He denies having trouble swallowing or chewing. On presentation to ED, he reported having epigastric pain but no associated nausea or vomiting. However no significant findings on physical examination performed by ED provider. His initial work up in ED shows a CBC remarkable for platelet of 157. His chemistry is significant for sodium of 129, K of 3.4, Cl of 92, BUN of 4, Cr of 1.1, BS of 112, Mag of 1.5, Total Bili of 1.4, Alk phos of 130 and Albumin of 3.1. His UA and COVID-19 screening are both negative. Assessment: This is a 59 yo white male with past medical hx/o HTN, HLD, Hypothyroidism, GERD, Gastritis, HCC/Sick Sinus Syndrome S/p Pacemaker Placement, MGUS, Leukocytopenia, Down Syndrome, Intellectual Disability, OA, Gout, Chronic Diarrhea, Obesity, and Hx/o Gallstones w/o Obstruction who was brought in by his brother for generalized weakness and evaluation of a recent fall at home without obvious trauma. Acute: * Generalized Weakness. This is mainly from not eating but likely multifactorial. Fall precautions and encourage to eat. * Leukocytopenia. This chronic to him. We will monitor. * Moderate Hyponatremia. He presents with a sodium level of 129. This is likely due to GI loss and not eating. * Mild Hypokalemia. He comes in with a K level of 3.4. This 2/2 GI loss and no nutritional intake. * Hypochloremia. He presents with a Cl level of 92. This is likely from GI loss and no oral intake. * Hypomagnesemia. He presents with a Mg level of 1.5 Again due to GI loss and no oral intake. Will replete and monitor. * Elevated Alkaline phosphatase. Liver enzymes were normal. Has a hx/o Gallstone. Will obtain abdominal U/S. * Hypoalbuminemia. He comes in with an albumin level of 3.1. * Status Post fall. No obvious trauma. No head or spinal tenderness on physical examination. * Fear of Eating Resulting in having bowel movement. Consider Psych consult. * Query Abdominal Pain. Carries a hx/o gastritis. Non tender on examination. He was scoped by Dr. Thomason about a year ago with findings of mild diverticulosis, grade I internal hemorrhoids, 4 mm polyp splenic flexure. His Carafate is causing him diarrhea if he is not eating. Will hold it for now. Chronic: HTN, HLD, Hypothyroidism, GERD, Gastritis, HCC/Sick Sinus Syndrome S/p Pacemaker Placement, MGUS, Leukocytopenia, Down Syndrome, Intellectual Disability, OA, Gout, Chronic Diarrhea, Obesity, and Hx/o Gallstones w/o Obstruction . Plan: Admit to [facility]. IV fluid for hydration. regular diet. He may need psych due to fear of eating. Fall precautions. Resume home medications. Thyroid panel and Vit D level if not already done. UA to r/o UTI. Correct e-lytes abnormality. Dietary consult for low protein state. Code statu is full. Brief History: 05/03/2020: No overnight issues. He slept well and continue to eat and drink fine. His UA grew Kleb pneumoniae. He remains afebrile since adm ission. He is low on K and Mg this morning. 05/02/2020: No significant overnight or acute issues. No diarrhea overnight. He is eating breakfast and tolerating his diet well. Diagnosis: Stroke: No - Discharge Data Discharge Date: 05/04/20 Discharge Disposition: Home, Self-Care 01 Condition: Good - Referral to Home Health Primary Care Physician: Raad Acosta MD - Discharge Diagnosis/Problem(s) (1) UTI (urinary tract infection) SNOMED Code(s): 47927501 ICD Code: N39.0 - URINARY TRACT INFECTION, SITE NOT SPECIFIED Status: Acute (2) Anorexia SNOMED Code(s): 93551942 ICD Code: R63.0 - ANOREXIA Status: Acute (3) Hypomagnesemia SNOMED Code(s): 555933359 ICD Code: E83.42 - HYPOMAGNESEMIA Status: Acute (4) Hyponatremia SNOMED Code(s): 68766483 ICD Code: E87.1 - HYPO-OSMOLALITY AND HYPONATREMIA Status: Acute (5) Weight loss SNOMED Code(s): 55571324, 751267912 ICD Code: R63.4 - ABNORMAL WEIGHT LOSS Status: Acute - Patient Summary/Data Consults: Consultations 05/01/20 10:11 Consult to Case Management/A Auxiliary [CONS] Routine Consult to Spiritual Care [CONS] Routine OT Evaluation and Treatment [CONS] Routine PT Evaluation and Treatment [CONS] Routine 05/01/20 15:16 Consult to Physician [CONS] Routine Hospital Course: patient was admitted with generalized weakness which appears to be from decreased oral intake. He had IV fluid rehydration and symptoms improved. Patient was also diagnosed with UTI and treated for 2 days with Rocephin. He was discharged on Bactrim. Electrolyte disorders were corrected, and he had a dietary consult. Remeron was started which hopefully will help his appetite. He will follow-up with his primary care provider. - Patient Instructions Diet: Usual Diet as Tolerated Activity: As Tolerated Driving: Do Not Drive Showering/Bathing: May Shower Other/Special Instructions: Follow up with PCP in 1 week. - Discharge Plan *PRESCRIPTION DRUG MONITORING PROGRAM REVIEWED*: Not Applicable *COPY OF PRESCRIPTION DRUG MONITORING REPORT IN PATIENT PB: Not Applicable Prescriptions/Med Rec: Sulfamethoxazole/Trimethoprim [Bactrim Ds Tablet] 1 each PO BID #6 tablet Mirtazapine [Remeron] 15 mg PO BEDTIME #30 tablet Home Medications: Home Meds Levothyroxine [Synthroid] 50 mcg PO DAILY 01/23/14 [History] allopurinoL [Zyloprim] 300 mg PO MOWEFR 01/23/14 [History] atorvaSTATin [Lipitor] 20 mg PO DAILY 01/23/14 [History] Cholecalciferol (Vitamin D3) [Vitamin D3] 1,000 unit PO DAILY 04/10/19 [History] Cyanocobalamin (Vitamin B-12) [B-12] 1,000 mcg PO DAILY 05/01/20 [History] Multivitamin [Multivitamins] 1 tab PO DAILY 05/01/20 [History] Mirtazapine [Remeron] 15 mg PO BEDTIME #30 tablet 05/04/20 [Rx] Sulfamethoxazole/Trimethoprim [Bactrim Ds Tablet] 1 each PO BID #6 tablet 05/04/20 [Rx] Oxygen Therapy Mode: Room Air Referrals: Raad Acosta MD [Primary Care Provider] - 05/11/20 1:30 pm (Please check in at 1:15pm.) - Discharge Summary/Plan Comment DC Time >30 min.: Yes Discharge Summary/Plan Comment: Follow-up with primary care provider next week. Discharged home in good condition. - General Info Date of Service: 05/04/20 Admission Dx/Problem (Free Text: Admission Diagnosis/Problem Admission Diagnosis/Problem Hypomagnesemia Subjective Update: 05/04/2020:Ric was started on Remeron per Dr. Barron last night and he slept well and had no adverse reaction. 05/03/2020: No overnight issues. He slept well and continue to eat and drink fine. His UA grew Kleb pneumoniae. He remains afebrile since admission. He is low on K and Mg this morning. 05/02/2020: No significant overnight or acute issues. No diarrhea overnight. He is eating breakfast and tolerating his diet well. Functional Status: Reports: Pain Controlled - Review of Systems General: Reports: No Symptoms HEENT: Reports: No Symptoms Pulmonary: Reports: No Symptoms Cardiovascular: Reports: No Symptoms Gastrointestinal: Reports: No Symptoms Musculoskeletal: Reports: No Symptoms Neurological: Reports: No Symptoms Psychiatric: Reports: No Symptoms - Patient Data Vitals - Most Recent: Last Vital Signs Temp 97.3 F 05/04/20 08:58 Pulse 71 05/04/20 08:58 Resp 20 05/04/20 08:58 BP 117/79 05/04/20 08:58 Pulse Ox 100 05/04/20 08:58 Orthostatic Blood Pressure [ 112/67 Standing] Orthostatic Blood Pressure [ 111/63 Supine] Weight - Most Recent: 66.281 kg I&O - Last 24 hours: Intake & Output 05/03/20 05/04/20 05/04/20 22:59 06:59 14:59 Intake Total 2594 1425 Output Total 900 800 Balance 1692 625 Lab Results - Last 24 hrs: Laboratory Results - last 24 hr 05/04/20 Range/Units 05:50 Sodium 139 (136-145) mEq/L Potassium 4.1 (3.5-5.1) mEq/L Chloride 106 (98-107) mEq/L Carbon Dioxide 29 (21-32) mEq/L Anion Gap 8.1 (5-15) BUN 3 L (7-18) mg/dL Creatinine 1.0 (0.7-1.3) mg/dL Est Cr Clr Drug Dosing 64.80 mL/min Estimated GFR (MDRD) > 60 (>60) mL/min BUN/Creatinine Ratio 3.0 L (14-18) Glucose 112 H (74-106) mg/dL Calcium 8.4 L (8.5-10.1) mg/dL Magnesium 2.0 (1.8-2.4) mg/dl OLEG Results - Last 24 hrs: Microbiology 05/01/20 10:40 Urine Culture - Final Urine, Clean Catch Klebsiella Pneumoniae Med Orders - Current: Current Medications Acetaminophen (Tylenol) 650 mg PO Q4H PRN PRN Reason: Pain (Mild 1-3)/fever Last Admin: 05/03/20 00:25 Dose: 650 mg Documented by: Hydrocodone Bitart/Acetaminophen ([place] 325-5 Mg) 1 tab PO Q4H PRN PRN Reason: Pain (moderate 4-6) Albuterol/Ipratropium (Duoneb 3.0-0.5 Mg/3 Ml) 3 ml NEB Q4H PRN PRN Reason: Shortness Of Breath/wheezing Allopurinol (Zyloprim) 300 mg PO [id number]@0800 [facility] Last Admin: 05/03/20 09:05 Dose: 300 mg Documented by: Cholecalciferol (Vitamin D3) 25 mcg PO DAILY [facility] Last Admin: 05/04/20 09:03 Dose: 25 mcg Documented by: Cyanocobalamin (Vitamin B12) 1,000 mcg PO DAILY [facility] Last Admin: 05/04/20 09:03 Dose: 1,000 mcg Documented by: Famotidine (Pepcid) 20 mg PO BID [facility] Last Admin: 05/04/20 09:03 Dose: 20 mg Documented by: Promethazine HCl 12.5 mg/ (Sodium Chloride) 50.5 mls @ 100 mls/hr IV Q6H PRN PRN Reason: Nausea/Vomiting Ceftriaxone Sodium 1 gm/ (Sodium Chloride) 100 mls @ 200 mls/hr IV Q24H [facility] Last Admin: 05/03/20 15:20 Dose: 200 mls/hr Documented by: Ketorolac Tromethamine (Toradol) 30 mg IVPUSH Q6H PRN PRN Reason: Pain (moderate 4-6) Levothyroxine Sodium (Synthroid) 50 mcg PO DAILY [facility] Last Admin: 05/04/20 09:03 Dose: 50 mcg Documented by: Mirtazapine (Remeron) 15 mg PO BEDTIME [facility] Last Admin: 05/03/20 20:53 Dose: 15 mg Documented by: Multivitamins (Thera) 1 each PO DAILY [facility] Last Admin: 05/04/20 09:04 Dose: 1 each Documented by: Ondansetron HCl (Zofran) 4 mg IV Q6H PRN PRN Reason: Nausea/Vomiting Simvastatin (Zocor) 20 mg PO DAILY [facility] Last Admin: 05/04/20 09:04 Dose: 20 mg Documented by: Discontinued Medications Lactated Ringer's (Ringers, Lactated) 1,000 mls @ 999 mls/hr IV .BOLUS ONE Stop: 05/01/20 07:36 Last Admin: 05/01/20 06:41 Dose: 999 mls/hr Documented by: Magnesium Sulfate 2 gm/ Premix 50 mls @ 25 mls/hr IV ONETIME ONE Stop: 05/01/20 10:13 Last Admin: 05/01/20 08:24 Dose: 25 mls/hr Documented by: Dextrose/Sodium Chloride (Dextrose 5%-1/2 Ns) 1,000 mls @ 125 mls/hr IV ASDIRECTED [facility] Last Admin: 05/04/20 01:56 Dose: 125 mls/hr Documented by: Ceftriaxone Sodium 1 gm/ (Sodium Chloride) 100 mls @ 200 mls/hr IV Q24H [facility] Last Admin: 05/02/20 14:57 Dose: 200 mls/hr Documented by: Magnesium Sulfate 2 gm/ Premix 50 mls @ 25 mls/hr IV ONETIME ONE Stop: 05/03/20 11:38 Last Admin: 05/03/20 10:04 Dose: 25 mls/hr Documented by: Megestrol Acetate (Megace 40 Mg/Ml Susp) 400 mg PO BID [facility] Potassium Chloride (Klor-Con M20) 40 meq PO ONETIME ONE Stop: 05/02/20 06:16 Last Admin: 05/02/20 06:40 Dose: 40 meq Documented by: Potassium Chloride (Klor-Con M20) 60 meq PO ONETIME ONE Stop: 05/02/20 08:16 Last Admin: 05/02/20 11:02 Dose: Not Given Documented by: Potassium Chloride (Klor-Con M20) 60 meq PO ONETIME ONE Stop: 05/03/20 09:40 Last Admin: 05/03/20 10:00 Dose: 60 meq Documented by: Sucralfate (Carafate) 1 gm PO TIDMEALS [facility] Last Admin: 05/01/20 16:27 Dose: Not Given Documented by: - Exam Quality Assessment: Denies: Supplemental Oxygen General: Reports: Alert, Oriented HEENT: Reports: Pupils Equal, Mucous Membr. Moist/[place] Neck: Reports: Supple Lungs: Reports: Clear to Auscultation, Normal Respiratory Effort Cardiovascular: Reports: Regular Rate, Regular Rhythm GI/Abdominal Exam: Normal Bowel Sounds, Soft, Non-Tender, No Organomegaly, No Distention, No Abnormal Bruit, No Mass Extremities: Normal Inspection, Normal Range of Motion, Non-Tender, No Pedal Edema, Normal Capillary Refill Skin: Reports: Warm, Dry, Intact Neurological: Reports: No New Focal Deficit Psy/Mental Status: Reports: Alert, Normal Affect, Normal Mood
== END 2020-05-04 12:15 | disposition home or self-care (01) | DRG 690 ==
LOC: JD.ED 05:52 → JD.MS 08:40
PROVIDERS: ADMIT Internal Medicine; ATTEND Internal Medicine
DX: N39.0 Urinary tract infection, site not specified (principal); E87.1 Hypo-osmolality and hyponatremia; F32.1 Major depressive disorder, single episode, moderate; R10.13 Epigastric pain; R63.0 Anorexia; R33.9 Retention of urine, unspecified; H54.7 Unspecified visual loss; E78.00 Pure hypercholesterolemia, unspecified; E83.42 Hypomagnesemia; R63.4 Abnormal weight loss; I10 Essential (primary) hypertension; E78.5 Hyperlipidemia, unspecified; E03.9 Hypothyroidism, unspecified; Z79.890 Hormone replacement therapy; Z79.899 Other long term (current) drug therapy; K21.9 Gastro-esophageal reflux disease without esophagitis; K29.70 Gastritis, unspecified, without bleeding; I49.5 Sick sinus syndrome; D47.2 Monoclonal gammopathy; M19.90 Unspecified osteoarthritis, unspecified site; M10.9 Gout, unspecified; E66.9 Obesity, unspecified; Z95.0 Presence of cardiac pacemaker; Q90.9 Down syndrome, unspecified; W19.XXXA Unspecified fall, initial encounter; Z20.828 Contact with and (suspected) exposure to other viral communicable diseases; E87.6 Hypokalemia; F41.9 Anxiety disorder, unspecified
CPT/HCPCS: 36415; 80053; 82306; 83735; 84439; 84443; 84484; 84550; 85007; 85027; 93005; 96365; 99285; J3475; J7120; 74018; 74018-26; 76700; 76700-26; 80048; 81003; 85025; 87086; 87088; 87186; 97161-GP; 97165-GO; A9270-GY; J0696; J7042; J7050; Q3014; U0002

== ENCOUNTER 2021-12-26 07:18 | Emergency (ER) | payer MEDICARE, BC ==
[2021-12-26] MEDS ORDERED: Dextrose 5%-0.9% NaCl 1,000 ML IV SCH (07:30)
[2021-12-26 09:55] VITALS: BP 140/70; PULSE 74
== END 2021-12-26 10:15 | disposition home or self-care (01) ==
LOC: JD.ED 07:18
DX: I95.1 Orthostatic hypotension (principal); E78.00 Pure hypercholesterolemia, unspecified; K21.9 Gastro-esophageal reflux disease without esophagitis; M10.9 Gout, unspecified; Z79.899 Other long term (current) drug therapy
CPT/HCPCS: 36415; 70450; 71045; 73080; 80053; 81001; 83735; 83880; 84443; 84484; 84550; 85025; 85610; 85730; 86140; 93005; 99284; J7042; 93010; 99285

== ENCOUNTER 2022-09-27 08:43 | Emergency (ER) | payer MEDICARE, BC ==
[2022-09-27 08:54] VITALS: BP 127/66; PULSE 85
== END 2022-09-27 11:40 | disposition home or self-care (01) ==
LOC: JD.ED 08:43
DX: S93.402A Sprain of unspecified ligament of left ankle, initial encounter (principal); R55 Syncope and collapse; E78.00 Pure hypercholesterolemia, unspecified; Z79.899 Other long term (current) drug therapy; W22.8XXA Striking against or struck by other objects, initial encounter
CPT/HCPCS: 36415; 70450; 70450-26; 73610-LT; 80053; 84484; 85025; 93005; 99285

== ENCOUNTER 2022-12-28 19:09 | Emergency (ER) | payer MEDICARE, BC ==
[2022-12-28 19:20] VITALS: BP 133/70; PULSE 75
[2022-12-28] MEDS ORDERED: Mupirocin Oint 22 GM Tube TOP ONE (20:59)
== END 2022-12-28 21:37 | disposition home or self-care (01) ==
LOC: JD.ED 19:09
DX: L97.411 Non-pressure chronic ulcer of right heel and midfoot limited to breakdown of skin (principal); E78.00 Pure hypercholesterolemia, unspecified; K21.9 Gastro-esophageal reflux disease without esophagitis; E03.9 Hypothyroidism, unspecified; M10.9 Gout, unspecified; Z79.899 Other long term (current) drug therapy; Z95.0 Presence of cardiac pacemaker
CPT/HCPCS: 36415; 80053; 83605; 85025; 99283; A9270

== ENCOUNTER 2023-01-08 12:27 | Emergency (ER) | payer MEDICARE, BC ==
[2023-01-08] MEDS ORDERED: Sodium Chloride 0.9% 1,000 ML IV SCH (13:45)
[2023-01-08 14:14] LABS: ESTIMATED GFR 53 mL/min (>60)
[2023-01-08] MEDS ORDERED: Iopamidol 755 Mg/ML 100 ML Bottle IVPUSH ONE (14:27)
[2023-01-08] MEDS ORDERED: Sodium Chloride 0.9% 10 ML Syringe FLUSH PRN (14:27)
[2023-01-08] MEDS ORDERED: Sodium Chloride 0.9% 100 ML IV SCH (14:30)
[2023-01-08] MEDS ORDERED: Cephalexin 500 MG Cap PO STA (18:08)
[2023-01-08 18:59] VITALS: BP 119/76; PULSE 88
== END 2023-01-08 18:55 | disposition home or self-care (01) ==
LOC: JD.ED 12:27
DX: L03.115 Cellulitis of right lower limb (principal); M71.21 Synovial cyst of popliteal space [Baker], right knee; K21.9 Gastro-esophageal reflux disease without esophagitis; Z79.899 Other long term (current) drug therapy
CPT/HCPCS: 36415; 73701; 80053; 81001; 83605; 83735; 85007; 85027; 85610; 85730; 86140; 87040; 93971; 96360; 96361; 99284; A9270; J3490; J7030; Q9967

== ENCOUNTER 2023-12-10 15:18 | Emergency (ER) | payer MEDICARE, BC ==
[2023-12-10 18:49] LABS: BASOPHILS ABSOLUTE AUTO 0.1 K/mm3 (0.0-0.2); EOSINOPHILS ABSOLUTE AUTO 0.1 K/mm3 (0.0-0.4); EOSINOPHILS PERCENT AUTO 1.2 % (0.0-6.0); HEMATOCRIT 40.9 % (42.0-52.0); HEMOGLOBIN 13.5 gm/dl (14.0-18.0); IMMATURE GRAN ABSOLUTE AUTO 0.01 K/mm3 (0.00-0.05); IMMATURE GRAN PERCENT AUTO 0.2 % (0.0-0.4); LYMPHOCYTES ABSOLUTE AUTO 1.2 K/mm3 (1.0-4.8); LYMPHOCYTES PERCENT AUTO 30.5 % (24.0-44.0); MEAN CORPUSCULAR HEMOGLOBIN 34.6 pg (28.0-32.0); MEAN CORPUSCULAR VOLUME 104.9 fl (83.0-99.0); MEAN PLATELET VOLUME 9.6 fl (9.4-12.4); MONOCYTES ABSOLUTE AUTO 0.5 K/mm3 (0.0-0.8); MONOCYTES PERCENT AUTO 13.2 % (0.0-8.0); NEUTROPHILS ABSOLUTE AUTO 2.1 K/mm3 (1.8-7.7); NEUTROPHILS PERCENT AUTO 52.9 % (41.0-71.0); PLATELET COUNT,PLT 168 K/mm3 (150-400); WHITE BLOOD CELL COUNT,WBC 4.03 K/mm3 (3.9-11.3)
[2023-12-10 19:10] LABS: INR 1.06; PROTHROMBIN TIME 11.3 SECONDS (9.7-12.0)
[2023-12-10 19:18] LABS: A/G RATIO 0.6 (1-2); ALBUMIN 2.8 g/dl (3.4-5.0); BILIRUBIN TOTAL 0.9 mg/dL (0.2-1.0); BUN/CREATININE RATIO 22.9 (14-18); C-REACTIVE PROTEIN 2.87 mg/dL (<0.30); CALCIUM 9.1 mg/dL (8.5-10.1); CREATININE 1.7 mg/dL (0.7-1.3); EST CRCL DRUG DOSING (CG) 37.73 mL/min; MAGNESIUM 2.2 mg/dL (1.8-2.4); PROTEIN TOTAL,TP 7.8 g/dl (6.4-8.2)
[2023-12-10 19:24] LABS: D-DIMER QUANTITATIVE 1.36 mg/L (0.19-0.50)
[2023-12-10 19:39] LABS: CORONAVIRUS COVID-19 NAA NEGATIVE (NEGATIVE); INFLUENZA A NAA NEGATIVE (NEGATIVE); RESPIRATORY SYNCYTIAL VIR NAA NEGATIVE (NEGATIVE)
[2023-12-10 19:57] LABS: APPEARANCE,URINE CLEAR (Clear); BILIRUBIN,URINE NEGATIVE (Negative); COLOR,URINE YELLOW (Yellow); GLUCOSE,URINE NEGATIVE (Negative); KETONES,URINE NEGATIVE (Negative); LEUKOCYTE ESTERASE,URINE NEGATIVE (Negative); NITRITE,URINE NEGATIVE (Negative); OCCULT BLOOD,URINE 2+ (Negative); PH,URINE 5.5 (5.0-8.0); PROTEIN,URINE NEGATIVE (Negative); UROBILINOGEN,URINE 0.2 (0.2-1.0)
[2023-12-10] MEDS: predniSONE 20 MG Tab PO ONE (23:05)
[2023-12-10] MEDS ORDERED: predniSONE 20 MG Tab ONE (23:07)
[2023-12-10 23:32] VITALS: BP 124/81; PULSE 62
[2023-12-11 01:32] LABS: BACTERIA,URINE FEW /hpf (FEW); EPITHELIAL CELLS,URINE 0-5 /hpf (0-5); MUCUS,URINE FEW /hpf (FEW); RBC,URINE 20-30 /hpf (0-5); WBC,URINE 0-5 /hpf (0-5)
== END 2023-12-10 23:25 | disposition home or self-care (01) ==
LOC: JD.ED 15:18
DX: M25.562 Pain in left knee (principal); E78.00 Pure hypercholesterolemia, unspecified; K21.9 Gastro-esophageal reflux disease without esophagitis; E03.9 Hypothyroidism, unspecified; Z79.899 Other long term (current) drug therapy
CPT/HCPCS: 0241U; 36415; 73562; 80053; 81001; 83735; 83880; 84550; 85025; 85379; 85610; 85730; 86140; 93971; 99284; J7512

== ENCOUNTER 2024-05-12 17:19 | Emergency (ER) | payer MEDICARE, BC ==
[2024-05-12 20:10] LABS: BASOPHILS ABSOLUTE AUTO 0.1 K/mm3 (0.0-0.2); BASOPHILS PERCENT AUTO 1.2 % (0.0-1.0); EOSINOPHILS ABSOLUTE AUTO 0.1 K/mm3 (0.0-0.4); EOSINOPHILS PERCENT AUTO 1.6 % (0.0-6.0); HEMOGLOBIN 11.6 gm/dl (14.0-18.0); IMMATURE GRAN ABSOLUTE AUTO 0.01 K/mm3 (0.00-0.05); IMMATURE GRAN PERCENT AUTO 0.2 % (0.0-0.4); LYMPHOCYTES ABSOLUTE AUTO 1.8 K/mm3 (1.0-4.8); LYMPHOCYTES PERCENT AUTO 40.8 % (24.0-44.0); MEAN CORPUSCULAR HGB CONC 32.2 g/dl (32.0-36.0); MEAN CORPUSCULAR VOLUME 108.8 fl (83.0-99.0); MEAN PLATELET VOLUME 9.8 fl (9.4-12.4); MONOCYTES ABSOLUTE AUTO 0.5 K/mm3 (0.0-0.8); NEUTROPHILS ABSOLUTE AUTO 1.9 K/mm3 (1.8-7.7); NEUTROPHILS PERCENT AUTO 45.2 % (41.0-71.0); PLATELET COUNT,PLT 160 K/mm3 (150-400); RED BLOOD CELL COUNT 3.31 M/mm3 (4.52-5.90); WHITE BLOOD CELL COUNT,WBC 4.29 K/mm3 (3.9-11.3)
[2024-05-12 20:39] LABS: A/G RATIO 0.6 (1-2); ALANINE AMINOTRANSFERASE,ALT 24 U/L (16-63); ALBUMIN 2.8 g/dl (3.4-5.0); ALKALINE PHOSPHATASE 109 U/L (46-116); ANION GAP 11.2 (5-15); ASPARTATE AMNIOTRANSFERASE,AST 24 U/L (15-37); BLOOD UREA NITROGEN,BUN 34 mg/dL (7-18); BUN/CREATININE RATIO 17.9 (14-18); CALCIUM 8.9 mg/dL (8.5-10.1); CARBON DIOXIDE,CO2 27 mEq/L (21-32); CHLORIDE,CL 108 mEq/L (98-107); CREATININE 1.9 mg/dL (0.7-1.3); ESTIMATED GFR 39 mL/min (>60); GLUCOSE RANDOM 112 mg/dL (70-99); POTASSIUM,K 4.2 mEq/L (3.5-5.1); PROTEIN TOTAL,TP 7.5 g/dl (6.4-8.2); SODIUM,NA 142 mEq/L (136-145); TROPONIN I HIGH SENSITIVITY 24 pg/mL (<=76)
[2024-05-12] MEDS: Sodium Chloride 0.9% 1,000 ML IV STA (22:30)
[2024-05-12] MEDS: Iopamidol 612 MG/ML 100 ML Bottle IVPUSH ONE (22:52)
[2024-05-13 00:29] VITALS: BP 136/98; PULSE 89
== END 2024-05-12 23:48 | disposition home or self-care (01) ==
LOC: JD.ED 17:19
DX: I87.2 Venous insufficiency (chronic) (peripheral) (principal); R10.84 Generalized abdominal pain; E78.00 Pure hypercholesterolemia, unspecified; K21.9 Gastro-esophageal reflux disease without esophagitis; E03.9 Hypothyroidism, unspecified; Z79.899 Other long term (current) drug therapy; Z79.890 Hormone replacement therapy; Z79.51 Long term (current) use of inhaled steroids
CPT/HCPCS: 36415; 74177; 80053; 83880; 84484; 85025; 96360; 99284; J7030; Q9967

== ENCOUNTER 2024-05-29 10:50 | Emergency (ER) | payer MEDICARE, BC ==
[2024-05-29 11:21] VITALS: BP 142/71; PULSE 71
[2024-05-29 12:15] LABS: BASOPHILS ABSOLUTE AUTO 0.1 K/mm3 (0.0-0.2); BASOPHILS PERCENT AUTO 1.2 % (0.0-1.0); EOSINOPHILS PERCENT AUTO 0.7 % (0.0-6.0); HEMATOCRIT 43.5 % (42.0-52.0); IMMATURE GRAN ABSOLUTE AUTO 0.01 K/mm3 (0.00-0.05); IMMATURE GRAN PERCENT AUTO 0.2 % (0.0-0.4); LYMPHOCYTES ABSOLUTE AUTO 2.3 K/mm3 (1.0-4.8); LYMPHOCYTES PERCENT AUTO 55.4 % (24.0-44.0); MEAN CORPUSCULAR HGB CONC 32.9 g/dl (32.0-36.0); MEAN CORPUSCULAR VOLUME 106.6 fl (83.0-99.0); MEAN PLATELET VOLUME 9.7 fl (9.4-12.4); MONOCYTES ABSOLUTE AUTO 0.3 K/mm3 (0.0-0.8); MONOCYTES PERCENT AUTO 7.7 % (0.0-8.0); NEUTROPHILS ABSOLUTE AUTO 1.4 K/mm3 (1.8-7.7); NEUTROPHILS PERCENT AUTO 34.8 % (41.0-71.0); PLATELET COUNT,PLT 171 K/mm3 (150-400); RED BLOOD CELL COUNT 4.08 M/mm3 (4.52-5.90); WHITE BLOOD CELL COUNT,WBC 4.15 K/mm3 (3.9-11.3)
[2024-05-29 12:22] LABS: HEMOGLOBIN 14.3 gm/dl (14.0-18.0)
[2024-05-29 12:57] LABS: A/G RATIO 0.6 (1-2); ALBUMIN 3.3 g/dl (3.4-5.0); ANION GAP 16.9 (5-15); BUN/CREATININE RATIO 13.3 (14-18); CALCIUM 9.6 mg/dL (8.5-10.1); CREATININE 1.8 mg/dL (0.7-1.3); EST CRCL DRUG DOSING (CG) 30.09 mL/min; MAGNESIUM 1.8 mg/dL (1.8-2.4); POTASSIUM,K 3.9 mEq/L (3.5-5.1); PROTEIN TOTAL,TP 8.7 g/dl (6.4-8.2); TSH 6.504 uIU/mL (0.358-3.74)
== END 2024-05-29 13:30 ==
LOC: JD.ED 10:50
DX: S10.93XA Contusion of unspecified part of neck, initial encounter (principal); S00.83XA Contusion of other part of head, initial encounter; E78.00 Pure hypercholesterolemia, unspecified; K21.9 Gastro-esophageal reflux disease without esophagitis; E03.9 Hypothyroidism, unspecified; Z79.899 Other long term (current) drug therapy; Y04.8XXA Assault by other bodily force, initial encounter
CPT/HCPCS: 36415; 80053; 83735; 84443; 85025; 99283; 99284

== ENCOUNTER 2024-08-04 11:24 | Emergency (ER) | payer MEDICARE, BC ==
[2024-08-04 12:54] LABS: STREP A BY PCR NOT DETECTED (NOT DETECT)
[2024-08-04 13:05] LABS: BASOPHILS ABSOLUTE AUTO 0.1 K/mm3 (0.0-0.2); EOSINOPHILS PERCENT AUTO 0.8 % (0.0-6.0); HEMATOCRIT 39.5 % (42.0-52.0); IMMATURE GRAN ABSOLUTE AUTO 0.02 K/mm3 (0.00-0.05); IMMATURE GRAN PERCENT AUTO 0.4 % (0.0-0.4); LYMPHOCYTES ABSOLUTE AUTO 1.7 K/mm3 (1.0-4.8); LYMPHOCYTES PERCENT AUTO 34.1 % (24.0-44.0); MEAN CORPUSCULAR HGB CONC 32.9 g/dl (32.0-36.0); MEAN CORPUSCULAR VOLUME 103.4 fl (83.0-99.0); MEAN PLATELET VOLUME 9.6 fl (9.4-12.4); MONOCYTES ABSOLUTE AUTO 0.7 K/mm3 (0.0-0.8); MONOCYTES PERCENT AUTO 13.4 % (0.0-8.0); NEUTROPHILS ABSOLUTE AUTO 2.5 K/mm3 (1.8-7.7); NEUTROPHILS PERCENT AUTO 50.3 % (41.0-71.0); PLATELET COUNT,PLT 155 K/mm3 (150-400); RED BLOOD CELL COUNT 3.82 M/mm3 (4.52-5.90); WHITE BLOOD CELL COUNT,WBC 4.92 K/mm3 (3.9-11.3)
[2024-08-04 13:07] LABS: CORONAVIRUS COVID-19 NAA NEGATIVE (NEGATIVE); INFLUENZA A NAA NEGATIVE (NEGATIVE); RESPIRATORY SYNCYTIAL VIR NAA NEGATIVE (NEGATIVE)
[2024-08-04 13:24] LABS: A/G RATIO 0.6 (1-2); ALANINE AMINOTRANSFERASE,ALT 18 U/L (16-63); ALBUMIN 2.9 g/dl (3.4-5.0); ALKALINE PHOSPHATASE 98 U/L (46-116); ANION GAP 12.1 (5-15); ASPARTATE AMNIOTRANSFERASE,AST 20 U/L (15-37); BILIRUBIN TOTAL 1.1 mg/dL (0.2-1.0); BLOOD UREA NITROGEN,BUN 22 mg/dL (7-18); BUN/CREATININE RATIO 12.9 (14-18); C-REACTIVE PROTEIN 2.76 mg/dL (<0.30); CARBON DIOXIDE,CO2 29 mEq/L (21-32); CHLORIDE,CL 101 mEq/L (98-107); CREATININE 1.7 mg/dL (0.7-1.3); ESTIMATED GFR 45 mL/min (>60); GLUCOSE RANDOM 133 mg/dL (70-99); LIPASE 168 U/L (16-77); POTASSIUM,K 4.1 mEq/L (3.5-5.1); PROTEIN TOTAL,TP 8.1 g/dl (6.4-8.2); SODIUM,NA 138 mEq/L (136-145)
[2024-08-04 13:56] LABS: APPEARANCE,URINE CLEAR (Clear); BILIRUBIN,URINE NEGATIVE (Negative); COLOR,URINE YELLOW (Yellow); GLUCOSE,URINE NEGATIVE (Negative); KETONES,URINE NEGATIVE (Negative); LEUKOCYTE ESTERASE,URINE 1+ (Negative); NITRITE,URINE NEGATIVE (Negative); OCCULT BLOOD,URINE 2+ (Negative); PROTEIN,URINE NEGATIVE (Negative); UROBILINOGEN,URINE 0.2 (0.2-1.0)
[2024-08-04] MEDS: Iopamidol 755 Mg/ML 100 ML Bottle IVPUSH ONE (14:06)
[2024-08-04] MEDS: Iopamidol 612 MG/ML 100 ML Bottle IVPUSH ONE (14:06)
[2024-08-04] MEDS: Sodium Chloride 0.9% 10 ML Syringe FLUSH PRN (14:06)
[2024-08-04] MEDS: Sodium Chloride 0.9% 1,000 ML IV SCH (14:17)
[2024-08-04] MEDS: LORazepam 2 MG/ML SDV IVPUSH ONE (14:20)
[2024-08-04 15:23] LABS: BACTERIA,URINE MANY /hpf (FEW); MUCUS,URINE FEW /hpf (FEW); SQUAMOUS EPITHELIAL CELLS,UR 0-5 /hpf (0-5); WBC,URINE 20-30 /hpf (0-5)
[2024-08-04] MEDS: cefTRIAXone 2 GM in Sodium Chloride 0.9% 100 ML IV ONE (16:12)
[2024-08-04 18:50] VITALS: BP 151/80; PULSE 69
== END 2024-08-04 16:48 | disposition home or self-care (01) ==
LOC: JD.ED 11:24
DX: K80.10 Calculus of gallbladder with chronic cholecystitis without obstruction (principal); N39.0 Urinary tract infection, site not specified; K21.9 Gastro-esophageal reflux disease without esophagitis; Z79.890 Hormone replacement therapy; Z79.899 Other long term (current) drug therapy
CPT/HCPCS: 0241U; 36415; 74177; 80053; 81001; 83690; 85025; 86140; 87086; 87651; 96361; 96365; 96375; 99284; J0696; J2060; J3490; J7030; Q9967

== ENCOUNTER 2024-08-13 14:48 | Emergency (ER) | payer MEDICARE, BC ==
[2024-08-13 15:17] VITALS: BP 153/84; PULSE 82
[2024-08-13] MEDS ORDERED: Sodium Chloride 0.9% 10 ML Syringe FLUSH PRN (15:38)
[2024-08-13] MEDS: HYDROmorphone 0.5 MG/0.5 ML Syringe IVPUSH ONE (17:13)
== END 2024-08-13 16:55 | disposition home or self-care (01) ==
LOC: JD.ED 14:48
DX: K80.10 Calculus of gallbladder with chronic cholecystitis without obstruction (principal); E78.00 Pure hypercholesterolemia, unspecified; Z95.5 Presence of coronary angioplasty implant and graft; K21.9 Gastro-esophageal reflux disease without esophagitis; E03.9 Hypothyroidism, unspecified; Z79.899 Other long term (current) drug therapy
CPT/HCPCS: 99283

== ENCOUNTER 2024-09-10 11:18 | Emergency (ER) | payer MEDICARE, BC ==
[2024-09-10] MEDS ORDERED: Sodium Chloride 0.9% 10 ML Syringe FLUSH PRN (11:31)
[2024-09-10] MEDS: Albuterol/Ipratropium 3.0-0.5 MG/3 ML Neb Soln NEB ONE (11:36)
[2024-09-10 11:47] LABS: BASOPHILS PERCENT AUTO 0.6 % (0.0-1.0); EOSINOPHILS PERCENT AUTO 0.5 % (0.0-6.0); HEMATOCRIT 39.9 % (42.0-52.0); HEMOGLOBIN 13.4 gm/dl (14.0-18.0); IMMATURE GRAN ABSOLUTE AUTO 0.02 K/mm3 (0.00-0.05); IMMATURE GRAN PERCENT AUTO 0.3 % (0.0-0.4); LYMPHOCYTES ABSOLUTE AUTO 1.3 K/mm3 (1.0-4.8); LYMPHOCYTES PERCENT AUTO 19.9 % (24.0-44.0); MEAN CORPUSCULAR HEMOGLOBIN 33.8 pg (28.0-32.0); MEAN CORPUSCULAR HGB CONC 33.6 g/dl (32.0-36.0); MEAN CORPUSCULAR VOLUME 100.5 fl (83.0-99.0); MEAN PLATELET VOLUME 10.8 fl (9.4-12.4); MONOCYTES ABSOLUTE AUTO 0.6 K/mm3 (0.0-0.8); MONOCYTES PERCENT AUTO 8.4 % (0.0-8.0); NEUTROPHILS ABSOLUTE AUTO 4.6 K/mm3 (1.8-7.7); NEUTROPHILS PERCENT AUTO 70.3 % (41.0-71.0); PLATELET COUNT,PLT 93 K/mm3 (150-400); RED BLOOD CELL COUNT 3.97 M/mm3 (4.52-5.90); WHITE BLOOD CELL COUNT,WBC 6.52 K/mm3 (3.9-11.3)
[2024-09-10 12:08] VITALS: BP 129/85; PULSE 72
[2024-09-10 12:08] LABS: LACTIC ACID 0.9 mmol/L (0.4-2.0)
[2024-09-10 12:15] LABS: A/G RATIO 0.6 (1-2); ALANINE AMINOTRANSFERASE,ALT 44 U/L (16-63); ALBUMIN 2.8 g/dl (3.4-5.0); ALKALINE PHOSPHATASE 151 U/L (46-116); ANION GAP 10.1 (5-15); ASPARTATE AMNIOTRANSFERASE,AST 36 U/L (15-37); BILIRUBIN TOTAL 0.8 mg/dL (0.2-1.0); BLOOD UREA NITROGEN,BUN 24 mg/dL (7-18); C-REACTIVE PROTEIN 1.59 mg/dL (<0.30); CALCIUM 9.2 mg/dL (8.5-10.1); CARBON DIOXIDE,CO2 29 mEq/L (21-32); CHLORIDE,CL 105 mEq/L (98-107); CREATININE 1.6 mg/dL (0.7-1.3); ESTIMATED GFR 48 mL/min (>60); GLUCOSE RANDOM 82 mg/dL (70-99); LIPASE 156 U/L (16-77); POTASSIUM,K 4.1 mEq/L (3.5-5.1); PROTEIN TOTAL,TP 7.6 g/dl (6.4-8.2); SODIUM,NA 140 mEq/L (136-145); TROPONIN I HIGH SENSITIVITY 25 pg/mL (<=76)
[2024-09-10 12:42] LABS: SLIDE REVIEW ABNORMAL SMEAR
[2024-09-10] MEDS: Furosemide 20 MG/2 ML VIAL IVPUSH ONE (12:48)
[2024-09-10] MEDS: Furosemide 20 MG Tab PO ONE (12:50)
== END 2024-09-10 13:06 | disposition home or self-care (01) ==
LOC: JD.ED 11:18
DX: D50.9 Iron deficiency anemia, unspecified (principal); N18.31 Chronic kidney disease, stage 3a; R79.89 Other specified abnormal findings of blood chemistry; J98.11 Atelectasis; E78.00 Pure hypercholesterolemia, unspecified; K21.9 Gastro-esophageal reflux disease without esophagitis; E03.9 Hypothyroidism, unspecified; Z79.890 Hormone replacement therapy; Z79.899 Other long term (current) drug therapy
CPT/HCPCS: 36415; 71045; 71045-26; 80053; 83605; 83690; 83880; 84484; 85025; 86140; 87428-QW; 93005; 93010; 94640; 96374; 99284; 99285-25; A9270-GY; J1940; J7620-GY

== ENCOUNTER 2024-09-23 12:21 | Emergency (ER) | payer BC, MEDICARE ==
[2024-09-23] MEDS ORDERED: Sodium Chloride 0.9% 10 ML Syringe FLUSH PRN (12:59)
[2024-09-23 13:10] LABS: BASOPHILS ABSOLUTE AUTO 0.1 K/mm3 (0.0-0.2); BASOPHILS PERCENT AUTO 1.2 % (0.0-1.0); EOSINOPHILS PERCENT AUTO 0.2 % (0.0-6.0); HEMATOCRIT 38.2 % (42.0-52.0); HEMOGLOBIN 13.1 gm/dl (14.0-18.0); IMMATURE GRAN ABSOLUTE AUTO 0.06 K/mm3 (0.00-0.05); IMMATURE GRAN PERCENT AUTO 1.2 % (0.0-0.4); LYMPHOCYTES ABSOLUTE AUTO 1.1 K/mm3 (1.0-4.8); LYMPHOCYTES PERCENT AUTO 21.8 % (24.0-44.0); MEAN CORPUSCULAR HEMOGLOBIN 34.1 pg (28.0-32.0); MEAN CORPUSCULAR HGB CONC 34.3 g/dl (32.0-36.0); MEAN CORPUSCULAR VOLUME 99.5 fl (83.0-99.0); MEAN PLATELET VOLUME 10.1 fl (9.4-12.4); MONOCYTES ABSOLUTE AUTO 0.6 K/mm3 (0.0-0.8); MONOCYTES PERCENT AUTO 11.2 % (0.0-8.0); NEUTROPHILS ABSOLUTE AUTO 3.3 K/mm3 (1.8-7.7); NEUTROPHILS PERCENT AUTO 64.4 % (41.0-71.0); PLATELET COUNT,PLT 119 K/mm3 (150-400); RED BLOOD CELL COUNT 3.84 M/mm3 (4.52-5.90); WHITE BLOOD CELL COUNT,WBC 5.09 K/mm3 (3.9-11.3)
[2024-09-23 14:31] LABS: A/G RATIO 0.5 (1-2); ALANINE AMINOTRANSFERASE,ALT 142 U/L (16-63); ALBUMIN 2.5 g/dl (3.4-5.0); ALKALINE PHOSPHATASE 155 U/L (46-116); ANION GAP 13.5 (5-15); ASPARTATE AMNIOTRANSFERASE,AST 112 U/L (15-37); BILIRUBIN TOTAL 0.6 mg/dL (0.2-1.0); BLOOD UREA NITROGEN,BUN 41 mg/dL (7-18); BUN/CREATININE RATIO 22.8 (14-18); CALCIUM 8.9 mg/dL (8.5-10.1); CARBON DIOXIDE,CO2 25 mEq/L (21-32); CHLORIDE,CL 105 mEq/L (98-107); CREATININE 1.8 mg/dL (0.7-1.3); ESTIMATED GFR 42 mL/min (>60); GLUCOSE RANDOM 115 mg/dL (70-99); MAGNESIUM 1.8 mg/dL (1.8-2.4); POTASSIUM,K 4.5 mEq/L (3.5-5.1); PROTEIN TOTAL,TP 7.5 g/dl (6.4-8.2); SODIUM,NA 139 mEq/L (136-145); TROPONIN I HIGH SENSITIVITY 29 pg/mL (<=76)
[2024-09-23 17:04] VITALS: BP 121/71; PULSE 84
== END 2024-09-23 15:41 | disposition home or self-care (01) ==
LOC: JD.ED 12:21
DX: R56.9 Unspecified convulsions (principal); E78.00 Pure hypercholesterolemia, unspecified; K21.9 Gastro-esophageal reflux disease without esophagitis; E03.9 Hypothyroidism, unspecified; Z79.899 Other long term (current) drug therapy; Z79.890 Hormone replacement therapy
CPT/HCPCS: 36415; 70450; 70450-26; 80053; 83735; 84484; 85025; 93005; 99285

== ENCOUNTER 2024-10-09 12:09 | Inpatient (IN) | payer BC, MEDICARE ==
[2024-10-09] MEDS ORDERED: Sodium Chloride 0.9% 10 ML Syringe FLUSH PRN (12:25)
[2024-10-09] MEDS: OLANZapine 10 MG Vial IM ONE (12:43)
[2024-10-09 13:47] LABS: BASOPHILS PERCENT AUTO 0.3 % (0.0-1.0); HEMATOCRIT 35.5 % (42.0-52.0); HEMOGLOBIN 11.9 gm/dl (14.0-18.0); IMMATURE GRAN ABSOLUTE AUTO 0.09 K/mm3 (0.00-0.05); IMMATURE GRAN PERCENT AUTO 1.3 % (0.0-0.4); LYMPHOCYTES ABSOLUTE AUTO 0.9 K/mm3 (1.0-4.8); LYMPHOCYTES PERCENT AUTO 13.2 % (24.0-44.0); MEAN CORPUSCULAR HEMOGLOBIN 33.7 pg (28.0-32.0); MEAN CORPUSCULAR HGB CONC 33.5 g/dl (32.0-36.0); MEAN CORPUSCULAR VOLUME 100.6 fl (83.0-99.0); MEAN PLATELET VOLUME 9.8 fl (9.4-12.4); MONOCYTES ABSOLUTE AUTO 0.6 K/mm3 (0.0-0.8); MONOCYTES PERCENT AUTO 8.2 % (0.0-8.0); NEUTROPHILS ABSOLUTE AUTO 5.4 K/mm3 (1.8-7.7); PLATELET COUNT,PLT 135 K/mm3 (150-400); RED BLOOD CELL COUNT 3.53 M/mm3 (4.52-5.90); WHITE BLOOD CELL COUNT,WBC 6.97 K/mm3 (3.9-11.3)
[2024-10-09 14:21] LABS: A/G RATIO 0.4 (1-2); ALBUMIN 2.3 g/dl (3.4-5.0); ANION GAP 10.8 (5-15); BILIRUBIN TOTAL 0.7 mg/dL (0.2-1.0); BUN/CREATININE RATIO 14.2 (14-18); C-REACTIVE PROTEIN 8.14 mg/dL (<0.30); CREATININE 2.4 mg/dL (0.7-1.3); EST CRCL DRUG DOSING (CG) 22.28 mL/min; MAGNESIUM 1.9 mg/dL (1.8-2.4); POTASSIUM,K 3.8 mEq/L (3.5-5.1); PROTEIN TOTAL,TP 7.6 g/dl (6.4-8.2)
[2024-10-09] MEDS ORDERED: cefTRIAXone 2 GM in Sodium Chloride 0.9% 100 ML IV ONE (14:28)
[2024-10-09] MEDS: Sodium Chloride 0.9% 1,000 ML IV ONE (15:04)
[2024-10-09] MEDS: cefTRIAXone 2 GM Vial IVPUSH ONE (15:04)
[2024-10-09 15:28] LABS: LACTIC ACID 0.9 mmol/L (0.4-2.0)
[2024-10-09] MEDS: Albuterol/Ipratropium 3.0-0.5 MG/3 ML Neb Soln NEB ONE (15:29)
[2024-10-09] MEDS ORDERED: Ondansetron 4 MG/2 ML SDV IV PRN (18:38)
[2024-10-09] MEDS ORDERED: Acetaminophen 325 MG Tab PO PRN (18:38)
[2024-10-09] MEDS ORDERED: Naloxone 0.4 MG/ML SDV IVPUSH PRN (18:38)
[2024-10-09] MEDS ORDERED: oxyCODONE 5 MG Tab PO PRN (18:38)
[2024-10-09] MEDS ORDERED: Morphine 2 MG/ML SYRINGE IVPUSH PRN (18:38)
[2024-10-09] MEDS ORDERED: Nystatin Topical Powder 15 GM Bottle TOP PRN (18:42)
[2024-10-09] MEDS: REMDESIVIR 200 MG in Sodium Chloride 0.9% 250 ML IV ONE (19:00)
[2024-10-09] MEDS: Heparin Sodium 5,000 Units/ML Vial SUBCUT SCH ×2 (19:47→21:45)
[2024-10-09] MEDS: Dexamethasone 10 MG/ML SDV IVPUSH SCH ×2 (19:47→20:23)
[2024-10-09] MEDS: Azithromycin 500 MG in Sodium Chloride 0.9% 250 ML IV SCH (20:22)
[2024-10-09] MEDS: Famotidine 20 MG/2 ML SDV IVPUSH SCH (20:25)
[2024-10-10 05:25] LABS: BASOPHILS PERCENT AUTO 0.3 % (0.0-1.0); HEMATOCRIT 33.3 % (42.0-52.0); HEMOGLOBIN 10.9 gm/dl (14.0-18.0); IMMATURE GRAN ABSOLUTE AUTO 0.08 K/mm3 (0.00-0.05); IMMATURE GRAN PERCENT AUTO 2.6 % (0.0-0.4); LYMPHOCYTES ABSOLUTE AUTO 0.9 K/mm3 (1.0-4.8); LYMPHOCYTES PERCENT AUTO 27.9 % (24.0-44.0); MEAN CORPUSCULAR HEMOGLOBIN 33.6 pg (28.0-32.0); MEAN CORPUSCULAR HGB CONC 32.7 g/dl (32.0-36.0); MEAN CORPUSCULAR VOLUME 102.8 fl (83.0-99.0); MEAN PLATELET VOLUME 10.4 fl (9.4-12.4); MONOCYTES ABSOLUTE AUTO 0.1 K/mm3 (0.0-0.8); MONOCYTES PERCENT AUTO 4.5 % (0.0-8.0); NEUTROPHILS PERCENT AUTO 64.7 % (41.0-71.0); PLATELET COUNT,PLT 127 K/mm3 (150-400); RED BLOOD CELL COUNT 3.24 M/mm3 (4.52-5.90); WHITE BLOOD CELL COUNT,WBC 3.08 K/mm3 (3.9-11.3)
[2024-10-10 05:28] LABS: A/G RATIO 0.4 (1-2); BILIRUBIN TOTAL 0.4 mg/dL (0.2-1.0); BUN/CREATININE RATIO 15.5 (14-18); C-REACTIVE PROTEIN 8.71 mg/dL (<0.30); CALCIUM 8.7 mg/dL (8.5-10.1); CREATININE 2.2 mg/dL (0.7-1.3); EST CRCL DRUG DOSING (CG) 31.01 mL/min; MAGNESIUM 2.1 mg/dL (1.8-2.4); PHOSPHORUS 3.8 mg/dL (2.6-4.7); PROTEIN TOTAL,TP 7.1 g/dl (6.4-8.2); TSH 1.279 uIU/mL (0.358-3.74)
[2024-10-10] MEDS: Levothyroxine 50 MCG Tab PO SCH (05:32)
[2024-10-10 05:35] LABS: ANION GAP 12.6 (5-15)
[2024-10-10 05:41] LABS: POTASSIUM,K 4.6 mEq/L (3.5-5.1)
[2024-10-10] MEDS: Albuterol/Ipratropium 3.0-0.5 MG/3 ML Neb Soln NEB PRN (08:45)
[2024-10-10] MEDS ORDERED: cefTRIAXone 1 GM in Sodium Chloride 0.9% 50 ML IV SCH (09:00)
[2024-10-10] MEDS: Dexamethasone 6 MG TABLET PO SCH (09:33)
[2024-10-10] MEDS: Cyanocobalamin (Vitamin B12) 1,000 MCG Tab PO SCH (09:33)
[2024-10-10] MEDS: risperiDONE 1 MG Tab PO SCH (09:33)
[2024-10-10] MEDS: Memantine 10 MG Tab PO SCH (09:33)
[2024-10-10] MEDS: Tamsulosin 0.4 MG Cap.ER PO SCH (09:33)
[2024-10-10] MEDS: atorvaSTATin 20 MG Tab PO SCH (09:33)
[2024-10-10] MEDS: LORazepam 0.5 MG Tab PO PRN (12:19)
[2024-10-10] MEDS: cefTRIAXone 1 GM Vial IVPUSH SCH (14:19)
[2024-10-10] MEDS ORDERED: Insulin Lispro 100 Unit/ML 3 ML KwikPen SUBCUT ONE (14:38)
[2024-10-10] MEDS: REMDESIVIR 100 MG in Sodium Chloride 0.9% 250 ML IV SCH (18:41)
[2024-10-10] MEDS: Melatonin 3 MG Tab PO PRN (21:18)
[2024-10-11 06:08] LABS: BASOPHILS PERCENT AUTO 0.2 % (0.0-1.0); HEMATOCRIT 35.3 % (42.0-52.0); HEMOGLOBIN 11.5 gm/dl (14.0-18.0); IMMATURE GRAN ABSOLUTE AUTO 0.08 K/mm3 (0.00-0.05); IMMATURE GRAN PERCENT AUTO 1.4 % (0.0-0.4); LYMPHOCYTES ABSOLUTE AUTO 1.1 K/mm3 (1.0-4.8); LYMPHOCYTES PERCENT AUTO 18.2 % (24.0-44.0); MEAN CORPUSCULAR HEMOGLOBIN 33.5 pg (28.0-32.0); MEAN CORPUSCULAR HGB CONC 32.6 g/dl (32.0-36.0); MEAN CORPUSCULAR VOLUME 102.9 fl (83.0-99.0); MONOCYTES ABSOLUTE AUTO 0.3 K/mm3 (0.0-0.8); MONOCYTES PERCENT AUTO 5.7 % (0.0-8.0); NEUTROPHILS ABSOLUTE AUTO 4.4 K/mm3 (1.8-7.7); NEUTROPHILS PERCENT AUTO 74.5 % (41.0-71.0); PLATELET COUNT,PLT 130 K/mm3 (150-400); RED BLOOD CELL COUNT 3.43 M/mm3 (4.52-5.90); WHITE BLOOD CELL COUNT,WBC 5.83 K/mm3 (3.9-11.3)
[2024-10-11 06:42] LABS: A/G RATIO 0.4 (1-2); ANION GAP 13.5 (5-15); BILIRUBIN TOTAL 0.3 mg/dL (0.2-1.0); BUN/CREATININE RATIO 21.1 (14-18); C-REACTIVE PROTEIN 6.32 mg/dL (<0.30); CALCIUM 9.1 mg/dL (8.5-10.1); CREATININE 1.9 mg/dL (0.7-1.3); EST CRCL DRUG DOSING (CG) 35.91 mL/min; POTASSIUM,K 4.5 mEq/L (3.5-5.1); PROTEIN TOTAL,TP 7.4 g/dl (6.4-8.2)
[2024-10-11] MEDS: risperiDONE 1 MG Tab PO SCH (20:41)
[2024-10-11] MEDS: Famotidine 20 MG Tab PO SCH (20:41)
[2024-10-12 05:32] LABS: BASOPHILS PERCENT AUTO 0.4 % (0.0-1.0); HEMATOCRIT 34.8 % (42.0-52.0); HEMOGLOBIN 11.7 gm/dl (14.0-18.0); IMMATURE GRAN ABSOLUTE AUTO 0.12 K/mm3 (0.00-0.05); IMMATURE GRAN PERCENT AUTO 2.1 % (0.0-0.4); LYMPHOCYTES ABSOLUTE AUTO 1.2 K/mm3 (1.0-4.8); LYMPHOCYTES PERCENT AUTO 21.4 % (24.0-44.0); MEAN CORPUSCULAR HEMOGLOBIN 33.3 pg (28.0-32.0); MEAN CORPUSCULAR HGB CONC 33.6 g/dl (32.0-36.0); MEAN CORPUSCULAR VOLUME 99.1 fl (83.0-99.0); MONOCYTES ABSOLUTE AUTO 0.3 K/mm3 (0.0-0.8); MONOCYTES PERCENT AUTO 4.9 % (0.0-8.0); NEUTROPHILS PERCENT AUTO 71.2 % (41.0-71.0); PLATELET COUNT,PLT 147 K/mm3 (150-400); RED BLOOD CELL COUNT 3.51 M/mm3 (4.52-5.90); WHITE BLOOD CELL COUNT,WBC 5.66 K/mm3 (3.9-11.3)
[2024-10-12 08:48] LABS: ANION GAP 12.2 (5-15); BUN/CREATININE RATIO 22.2 (14-18); CALCIUM 8.7 mg/dL (8.5-10.1); CREATININE 1.8 mg/dL (0.7-1.3); EST CRCL DRUG DOSING (CG) 37.91 mL/min; POTASSIUM,K 4.2 mEq/L (3.5-5.1)
[2024-10-12] MEDS: Sennosides/Docusate Sodium 50-8.6 MG Tab PO PRN (09:14)
[2024-10-12] MEDS: Enoxaparin 40 MG/0.4 ML Syringe SUBCUT SCH (09:15)
[2024-10-13 05:58] LABS: BASOPHILS PERCENT AUTO 0.5 % (0.0-1.0); IMMATURE GRAN ABSOLUTE AUTO 0.17 K/mm3 (0.00-0.05); IMMATURE GRAN PERCENT AUTO 4.7 % (0.0-0.4); LYMPHOCYTES ABSOLUTE AUTO 1.1 K/mm3 (1.0-4.8); MEAN CORPUSCULAR HEMOGLOBIN 33.8 pg (28.0-32.0); MEAN CORPUSCULAR HGB CONC 32.6 g/dl (32.0-36.0); MEAN PLATELET VOLUME 10.3 fl (9.4-12.4); MONOCYTES ABSOLUTE AUTO 0.3 K/mm3 (0.0-0.8); MONOCYTES PERCENT AUTO 7.9 % (0.0-8.0); NEUTROPHILS ABSOLUTE AUTO 2.1 K/mm3 (1.8-7.7); NEUTROPHILS PERCENT AUTO 57.9 % (41.0-71.0); PLATELET COUNT,PLT 166 K/mm3 (150-400); RED BLOOD CELL COUNT 4.05 M/mm3 (4.52-5.90); WHITE BLOOD CELL COUNT,WBC 3.65 K/mm3 (3.9-11.3)
[2024-10-13 06:00] LABS: HEMOGLOBIN 13.7 gm/dl (14.0-18.0); MEAN CORPUSCULAR VOLUME 103.7 fl (83.0-99.0)
[2024-10-13 06:18] LABS: BUN/CREATININE RATIO 24.4 (14-18); CALCIUM 9.2 mg/dL (8.5-10.1); CREATININE 1.6 mg/dL (0.7-1.3); EST CRCL DRUG DOSING (CG) 42.64 mL/min
[2024-10-13] MEDS ORDERED: LORazepam 1 MG Tab PO PRN (15:00)
[2024-10-13 16:07] VITALS: BP 102/56; PULSE 68
[2024-10-13] MEDS ORDERED: Melatonin 3 MG Tab PO SCH (21:00)
== END 2024-10-13 14:54 | disposition home or self-care (01) | DRG 177 ==
LOC: JD.ED 12:09 → JD.MS 15:26
PROVIDERS: ADMIT Student in an Organized Health Care Education/Training Program; ATTEND Family Medicine
PROC: XW033E5 Introduction of Remdesivir Anti-infective into Peripheral Vein, Percutaneous Approach, New Technology Group 5 (ICD-10-PCS; principal; 2024-10-09)
PROC: 3E0333Z Introduction of Anti-inflammatory into Peripheral Vein, Percutaneous Approach (ICD-10-PCS; 2024-10-09)
DX: U07.1 COVID-19 (principal); J12.82 Pneumonia due to coronavirus disease 2019; R09.02 Hypoxemia; J96.01 Acute respiratory failure with hypoxia; N17.9 Acute kidney failure, unspecified; Z66 Do not resuscitate; E78.00 Pure hypercholesterolemia, unspecified; I50.9 Heart failure, unspecified; Z79.890 Hormone replacement therapy; N18.9 Chronic kidney disease, unspecified; K21.9 Gastro-esophageal reflux disease without esophagitis; M10.9 Gout, unspecified; H54.7 Unspecified visual loss; F03.90 Unspecified dementia, unspecified severity, without behavioral disturbance, psychotic disturbance, mood disturbance, and anxiety; E03.9 Hypothyroidism, unspecified; Q90.9 Down syndrome, unspecified; Z79.899 Other long term (current) drug therapy; Z95.0 Presence of cardiac pacemaker; Z98.890 Other specified postprocedural states
CPT/HCPCS: 36415; 70450; 71045; 80053; 80307; 83605; 83735; 84484; 85025; 86140; 87040 ×2; 87428; 93005; 94640; 96372; 96374; 99285; J0696; J2359; J7030; 80048; 84100; 84443; 93010; 94667; 94668; 94761; 99222; 99232; 99239; A9270-GY; J0248; J0456; J1100; J1644; J1650; J7620-GY; J8540